=== PATIENT | female | born 1935 | race Caucasian/White ===

== ENCOUNTER 2017-10-02 15:20 | Emergency (ER) | payer MEDICARE, BC ==
[2017-10-02] MEDS ORDERED: Sodium Chloride 0.9% 10 ML Syringe FLUSH PRN (15:41)
[2017-10-02] MEDS ORDERED: Sodium Chloride 0.9% 1,000 ML IV SCH (15:45)
--- NOTE | 2017-10-02 16:03 | EDM.PDOC ---
ED HPI GENERAL MEDICAL PROBLEM - General Chief Complaint: Abdominal Pain Stated Complaint: SENT FROM RADIOLOGY Time Seen by Provider: 10/02/17 15:43 Source of Information: Reports: Patient, Old Records (xray and labs from earlier ), Provider (Latisha Hermosillo PA-C) History Limitations: Reports: No Limitations - History of Present Illness INITIAL COMMENTS - FREE TEXT/NARRATIVE: 81-year-old female presents for evaluation treatment of right lower quadrant abdominal pain. Patient reports that she is developed some discomfort yesterday. Reports that she woke with severe right lower quadrant abdominal pain this morning. Patient reports feeling bloated. Her last bowel movement was today. Denies any fevers, nausea or vomiting. Denies any melena or hematochezia. She states she is passing less gas than normal but continues to pass gas. Past abdominal surgeries include a cholecystectomy. She presented to the clinic today where she was seen by Latisha Rivera PA-C. She had labs and x-ray done. She is currently consuming contrast for CT with IV and oral contrast. X-ray showed air fluid line suspicious for small bowel obstruction. Labs included: CBC with a white blood cell count of 9.66, hemoglobin 13.5 and platelets of 251; CMP with a sodium 141, potassium 4.3, chloride 103, anion gap 14.3, creatinine 1.0 blood sugar 100; lipase was 105; CRP was undetectable less than 0.2; UA was negative for glucose, ketones, blood , nitrates and leukocytes. Onset: Today Abdomen Pain Score (Numeric/FACES): 6 - Related Data Allergies Allergy/AdvReac Type Severity Reaction Status Date / Time No Known Allergies Allergy Verified 12/25/15 12:13 Home Meds: Home Meds Diltiazem [Cardizem CD] 240 mg PO DAILY 11/26/14 [History] Levothyroxine 112 mcg PO DAILY 11/26/14 [History] Potassium Chloride [Klor-Con M20] 20 meq PO DAILY 11/26/14 [History] Pravastatin [Pravachol] 80 mg PO BEDTIME 11/26/14 [History] Acetaminophen [Tylenol] 650 mg PO Q6H PRN 10/02/17 [History] Cholecalciferol (Vitamin D3) [Vitamin D3] 5,000 unit PO DAILY 10/02/17 [History] Losartan Potassium [Cozaar] 50 mg PO DAILY 10/02/17 [History] Multivitamin [Multivitamins] 1 cap PO DAILY 10/02/17 [History] Oxybutynin Chloride 5 mg PO BEDTIME 10/02/17 [History] Venlafaxine [Effexor XR] 75 mg PO DAILY 10/02/17 [History] metFORMIN [Glucophage] 500 mg PO BID 10/02/17 [History] Past Medical History Cardiovascular History: Reports: Afib, High Cholesterol, Hypertension Psychiatric History: Reports: Anxiety, Depression Endocrine/Metabolic History: Reports: Diabetes, Type II, Hypothyroidism - Past Surgical History GI Surgical History: Reports: Colonoscopy Musculoskeletal Surgical History: Reports: Hip Replacement, Knee Replacement, Other (See Below) Social & Family History - Tobacco Use Smoking Status *Q: Former Smoker Years of Tobacco use: 40 Used Tobacco, but Quit: Yes Month Tobacco Last Used: 25 yr Second Hand Smoke Exposure: No - Caffeine Use Caffeine Use: Reports: Coffee, Soda, Tea - Alcohol Use Days Per Week of Alcohol Use: 0 Number of Drinks Per Day: 0 Total Drinks Per Week: 0 - Recreational Drug Use Recreational Drug Use: No Drug Use in Last 12 Months: No - Living Situation & Occupation Living situation: Reports: Alone Occupation: Retired ED ROS GENERAL - Review of Systems Review Of Systems: See Below Constitutional: Denies: Fever Respiratory: Denies: Shortness of Breath Cardiovascular: Denies: Chest Pain GI/Abdominal: Reports: Abdominal Pain (RLQ), Distension, Flatus. Denies: Hematochezia, Melena, Nausea, Vomiting ED EXAM, GI/ABD - Physical Exam Exam: See Below Exam Limited By: No Limitations General Appearance: Alert, WD/WN, No Apparent Distress Respiratory/Chest: No Respiratory Distress, Lungs Clear, Normal Breath Sounds Cardiovascular: Normal Peripheral Pulses, Regular Rate, Rhythm, No Murmur GI/Abdominal Exam: Soft, Distended, Tender (RLQ), Other (hyperactive bowel sounds). No: Guarding, Rigid, Rebound Neurological: Alert, Oriented, Normal Cognition Psychiatric: Normal Affect, Normal Mood Skin Exam: Warm, Dry, Normal Color Course - Vital Signs Last Recorded V/S: Last Vital Signs Temp 36.3 C 10/02/17 15:47 Pulse 68 10/02/17 17:45 Resp 16 10/02/17 17:45 BP 148/82 H 10/02/17 17:45 Pulse Ox 94 L 10/02/17 17:45 - Orders/Labs/Meds Labs: Laboratory Tests 10/02/17 10/02/17 Range/Units 15:41 15:44 PT 10.1 (8.0-13.0) SECONDS INR 0.93 POC Glucose 98 (83-110) mg/dL Meds: Medications Discontinued Medications Generic Name Dose Route Start Last Admin Trade Name Freq PRN Reason Stop Dose Admin Sodium Chloride 1,000 mls @ 100 mls/hr 10/02/17 15:45 10/02/17 16:30 Normal Saline IV 100 mls/hr ASDIRECTED JESSIKA Administration Ondansetron HCl 4 mg 10/02/17 17:34 10/02/17 17:43 Zofran IVPUSH 10/02/17 17:35 4 mg ONETIME ONE Administration Sodium Chloride 10 ml 10/02/17 15:41 10/02/17 15:40 Saline Flush FLUSH 10 ml ASDIRECTED PRN Administration Keep Vein Open - Radiology Interpretation Free Text/Narrative:: CT of the abdomen and pelvis with IV and oral contrast impression per Dr. Xie : 1. Slightly prominent size of small bowel with diffuse contrast seen throughout small bowel. This finding is felt to be incidental. 2. Other incidental findings as noted. Nothing acute is seen. Findings are similar to prior CT exam. - Re-Assessments/Exams Free Text/Narrative Re-Assessment/Exam: 10/02/17 17:[address] results with the patient. Likely constipation causing her discomfort. No bowel obstruction was seen on CT. She will likely have a large bowel movement from the contrast. I'll prescribe her bottle magnesium citrate to drink if she does not have a large bowel movement from the contrast. I also encouraged her to use MiraLAX or fiber supplementation daily to prevent constipation. Will discharge home at this time. Discharge instructions as documented. Departure - Departure Time of Disposition: 17:34 Disposition: Home, Self-Care 01 Condition: Fair Clinical Impression: Constipation - Discharge Information Instructions: Constipation, Adult, [id number] Referrals: Balbina García SIGNALS INTELLIGENCE ANALYSIS MANAGER [Primary Care Provider] - Forms: ED Department Discharge Additional Instructions: You will likely have a large bowel movement from the contrast today. If you do not have at least one large bowel movement tonight, tomorrow morning drink 1/2 of the bottle of mag citrate. If this does not produce a large bowel movement, drink the second half. make sure you are drinking plenty of fluids. Recommend [id number] MiraLAX daily or every other day for normal bowel maintenance. You should have 1-3 bowel movements every day to every 3 days. Follow up with your primary care provider if your symptoms are not much better within 1 week. Please return to ER if your symptoms change or worsen.
[2017-10-02] MEDS ORDERED: Ondansetron 4 MG/2 ML SDV IVPUSH ONE (17:34)
[2017-10-02 17:47] VITALS: BP 148/82
== END 2017-10-02 17:55 | disposition home or self-care (01) ==
LOC: SUPCPDRO 15:20 → JD.ED 15:20
DX: K59.00 Constipation, unspecified (principal); I10 Essential (primary) hypertension; E11.9 Type 2 diabetes mellitus without complications; Z79.899 Other long term (current) drug therapy; Z79.84 Long term (current) use of oral hypoglycemic drugs; Z87.891 Personal history of nicotine dependence; R10.9 Unspecified abdominal pain; R93.5 Abnormal findings on diagnostic imaging of other abdominal regions, including retroperitoneum
CPT/HCPCS: 36415; 74020; 74177; 80053; 81001; 82962; 83690; 85025; 85610; 86140; 96361; 96374; 99284; J2405; J7040; J7050; Q9963; Q9967

== ENCOUNTER 2018-05-05 17:53 | Emergency (ER) | payer MEDICARE, BC ==
[2018-05-05 18:14] VITALS: BP 125/66
[2018-05-05] MEDS ORDERED: Acetaminophen/HYDROcodone 325-5 MG Tab PO ONE (18:46)
--- NOTE | 2018-05-05 18:51 | EDM.PDOC ---
ED HPI GENERAL MEDICAL PROBLEM - General Chief Complaint: Back Pain or Injury Stated Complaint: LOWER BACK PAIN Time Seen by Provider: 05/05/18 18:38 Source of Information: Reports: Patient History Limitations: Reports: No Limitations - History of Present Illness INITIAL COMMENTS - FREE TEXT/NARRATIVE: Patient is a 82-year-old female who presents to the ED complaining of mid right- sided back discomfort. Patient states pain is pinpoint worse with palpation and movement. States the discomfort described as a sharp, spasming sensation relieved with sitting still. States yesterday she was out in the garden pulling radishes. Due to bad knees she is unable to kneel and thus was bending over excessively. Upon standing had some discomfort to the right side of her back. Throughout the course of the evening this has worsened. She's taken Tylenol with no relief. Pain with onset is rated a 10 out of 10. On initial examination she has no discomfort. She has been experiencing intermittent spasming sensations during examination. She has not taken any other medications. She believes she has tramadol at home from previous breast surgery. She denies any fever, chills, abdominal pain, dysuria, hematuria, recent fall/trauma, numbness/ tingling to lower extremities, saddle anesthesia, incontinence, or any additional complaints. She does use a cane to ambulate. Treatments INCREMENT MANAGER: Reports: Acetaminophen Back Pain Score (Numeric/FACES): 10 - Related Data Allergies Allergy/AdvReac Type Severity Reaction Status Date / Time No Known Allergies Allergy Verified 05/05/18 18:14 Home Meds: Home Meds Diltiazem [Cardizem CD] 240 mg PO DAILY 11/26/14 [History] Levothyroxine 112 mcg PO DAILY 11/26/14 [History] Potassium Chloride [Klor-Con M20] 20 meq PO DAILY 11/26/14 [History] Pravastatin [Pravachol] 80 mg PO BEDTIME 11/26/14 [History] Acetaminophen [Tylenol] 650 mg PO Q6H PRN 10/02/17 [History] Cholecalciferol (Vitamin D3) [Vitamin D3] 5,000 unit PO DAILY 10/02/17 [History] Losartan Potassium [Cozaar] 50 mg PO DAILY 10/02/17 [History] Multivitamin [Multivitamins] 1 cap PO DAILY 10/02/17 [History] Oxybutynin Chloride 5 mg PO BEDTIME 10/02/17 [History] Venlafaxine [Effexor XR] 75 mg PO DAILY 10/02/17 [History] metFORMIN [Glucophage] 500 mg PO BID 10/02/17 [History] Calcium Carbonate [Calcium] 600 mg PO DAILY 05/05/18 [History] Teriparatide [Forteo] 20 mcg SQ DAILY 05/05/18 [History] Past Medical History Cardiovascular History: Reports: Afib, High Cholesterol, Hypertension Psychiatric History: Reports: Anxiety, Depression Endocrine/Metabolic History: Reports: Diabetes, Type II, Hypothyroidism Oncologic (Cancer) History: Reports: Breast - Past Surgical History GI Surgical History: Reports: Colonoscopy Female Surgical History: Reports: Other (See Below) Other Female Surgeries/Procedures: lumpectomy Musculoskeletal Surgical History: Reports: Hip Replacement, Knee Replacement, Other (See Below) Social & Family History - Tobacco Use Smoking Status *Q: Former Smoker Used Tobacco, but Quit: Yes Month/Year Tobacco Last Used: 30 years ago - Caffeine Use Caffeine Use: Reports: Coffee, Soda - Recreational Drug Use Recreational Drug Use: No - Living Situation & Occupation Living situation: Reports: Alone Occupation: Retired ED ROS GENERAL - Review of Systems Review Of Systems: ROS reveals no pertinent complaints other than HPI. ED EXAM,LOWER BACK PAIN/INJURY - Physical Exam Exam: See Below Exam Limited By: No Limitations General Appearance: Alert, WD/WN, Mild Distress Eye Exam: Bilateral Eye: Normal Inspection Ears: Hearing Grossly Normal Nose: Normal Inspection Throat/Mouth: Normal Voice, No Airway Compromise Neck: Normal Inspection, Supple Respiratory/Chest: No Respiratory Distress, Lungs Clear, Normal Breath Sounds, No Accessory Muscle Use, Chest Non-Tender Cardiovascular: Normal Peripheral Pulses, Regular Rate, Rhythm GI/Abdominal: Normal Bowel Sounds, Soft, Non-Tender, No Organomegaly, No Distention Back Exam: Normal Inspection, Decreased Range of Motion, Muscle Spasm (Mid back right side pin point tenderness with palpation. No swelling,rash, bony abnormalities, and or bruising noted. ). No: Paraspinal Tenderness, Vertebral Tenderness Extremities: Normal Inspection Neurological: Alert, Normal Mood/Affect, Normal Dorsiflexion, CN II-XII Intact, No Motor/Sensory Deficits, Oriented x 3 Psychiatric: Normal Affect, Normal Mood Skin Exam: Warm, Dry, Intact, Normal Color Course - Vital Signs Last Recorded V/S: Last Vital Signs Temp 97.7 F 05/05/18 18:08 Pulse 80 05/05/18 18:08 Resp 18 05/05/18 18:08 BP 125/66 05/05/18 18:08 Pulse Ox 98 05/05/18 18:08 - Orders/Labs/Meds Meds: Medications Discontinued Medications Generic Name Dose Route Start Last Admin Trade Name Ricardo PRN Reason Stop Dose Admin Hydrocodone Bitart/Acetaminophen 1 tab 05/05/18 18:46 05/05/18 19:00 [place] 325-5 Mg PO 05/05/18 18:47 1 tab ONETIME ONE Administration - Re-Assessments/Exams Free Text/Narrative Re-Assessment/Exam: Order [place] one tab by mouth. Per nursing staff patient is requesting to go home prior to affect of medication. Daughter is present and will be staying with her. No prescriptions warranted. She has tramadol at home. Discharge instructions as documented. Departure - Departure Time of Disposition: 19:11 Disposition: Home, Self-Care 01 Condition: Good Clinical Impression: Strain of back Qualifiers: Encounter type: initial encounter Qualified Code(s): S39.012A - Strain of muscle, fascia and tendon of lower back, initial encounter - Discharge Information Instructions: Muscle Strain, [id number], Low Back Strain Referrals: Balbina García CLAIM ADMINISTRATOR [Primary Care Provider] - Forms: ED Department Discharge Additional Instructions: No driving this evening since receiving a sedative medication while in the ED. Take the tramadol as prescribed for pain. May utilize Aleve one tab twice daily as well. Take Tylenol 650 mg with the tramadol for added pain relief. Apply warm compresses to the affected area as needed throughout the day with gentle massage and ice to follow. Refrain from any activities that cause worsening pain. Followup with PCP asneeded. Return to the E.D. if you develop any new or worsening symptoms. Be aware you are at increased risk of falling with taking the tramadol with ambulating.
== END 2018-05-05 19:21 | disposition home or self-care (01) ==
LOC: JD.ED 17:53
DX: S39.012A Strain of muscle, fascia and tendon of lower back, initial encounter (principal); I48.91 Unspecified atrial fibrillation; E78.00 Pure hypercholesterolemia, unspecified; I10 Essential (primary) hypertension; F41.9 Anxiety disorder, unspecified; F32.9 Major depressive disorder, single episode, unspecified; E11.9 Type 2 diabetes mellitus without complications; E03.9 Hypothyroidism, unspecified; Z79.899 Other long term (current) drug therapy; Z87.891 Personal history of nicotine dependence; Z79.84 Long term (current) use of oral hypoglycemic drugs; X50.9XXA Other and unspecified overexertion or strenuous movements or postures, initial encounter
CPT/HCPCS: 99283; A9270

== ENCOUNTER 2019-09-21 06:00 | Inpatient (IN) | payer MEDICARE, BC ==
[~2019-09-21 06:00] MED LIST: Lactated Ringers 1,000 ML IV SCH; Lidocaine 1%/Sod Bicarbonate in NS 8.4% 1 ML Syringe IDERM PRN; Sodium Chloride 0.9% 10 ML Syringe FLUSH PRN
[2019-09-21] MEDS ORDERED: Sennosides 8.6 MG Tab PO PRN (06:14)
[2019-09-21] MEDS ORDERED: Morphine 2 MG/ML Syringe IVPUSH PRN (06:14)
[2019-09-21] MEDS ORDERED: Magnesium Hydroxide 400 MG/5 ML Susp 30 ML Cup PO PRN (06:14)
[2019-09-21] MEDS ORDERED: Naloxone 0.4 MG/ML SDV IVPUSH PRN (06:14)
[2019-09-21] MEDS ORDERED: Ondansetron 4 MG/2 ML SDV IVPUSH PRN ×2 (06:14→07:43)
[2019-09-21] MEDS ORDERED: Lidocaine 1% 4 ML ONE (06:14)
[2019-09-21] MEDS ORDERED: Bisacodyl 5 MG Tab PO PRN (06:14)
[2019-09-21] MEDS ORDERED: fentaNYL 100 MCG/2 ML SDV ONE (06:15)
[2019-09-21] MEDS ORDERED: Propofol 200 MG/20 ML SDV ONE (06:15)
[2019-09-21] MEDS ORDERED: Midazolam 1 MG/ML 2 ML SDV ONE (06:15)
[2019-09-21] MEDS ORDERED: ceFAZolin 1 GM Vial ONE (06:17)
--- NOTE | 2019-09-21 06:33 | PCM.PREANE ---
Preanesthetic Assessment - Procedure Proposed Procedure: right total hip - Anesthesia/Transfusion/Family Hx Anesthesia History: Prior Anesthesia Without Reaction Family History of Anesthesia Reaction: No Transfusion History: No Prior Transfusion(s) - Review of Systems General: No Symptoms Pulmonary: No Symptoms, Cough (for a while- maybe meds) Cardiovascular: No Symptoms Gastrointestinal: Abdominal Pain (at times- has been going on) Neurological: No Symptoms, Difficulty Walking (walker) Other: Reports: Diabetes, Thyroid Problems, Depression - Physical Assessment NPO Status Date: 09/20/19 NPO Status Time: 19:00 (sip with pills this am) Vital Signs: Last Vital Signs Temp 98.7 F 09/21/19 06:15 Pulse 92 09/21/19 06:15 Resp 16 09/21/19 06:15 BP 150/80 H 09/21/19 06:15 Pulse Ox 93 L 09/21/19 06:15 Height: 5 ft 1 in Weight: 61.235 kg ASA Class: 3 Mental Status: Alert & Oriented x3 Airway Class: Mallampati = 1 Dentition: Reports: Dentures (top) Thyro-Mental Finger Breadths: 3 Mouth Opening Finger Breadths: 3 ROM/Head Extension: Full Lungs: Clear to Auscultation, Normal Respiratory Effort Cardiovascular: Regular Rate, Regular Rhythm - Lab Values: Laboratory Last Values MRSA (PCR) Negative 09/11/19 11:02 - Allergies Allergies/Adverse Reactions: Allergies Allergy/AdvReac Type Severity Reaction Status Date / Time No Known Allergies Allergy Verified 09/18/19 10:12 - Blood Blood Available: Yes - Acknowledgements Anesthesia Type Planned: Spinal Pt an Appropriate Candidate for the Planned Anesthesia: Yes Alternatives and Risks of Anesthesia Discussed w Pt/Guardian: Yes Pt/Guardian Understands and Agrees with Anesthesia Plan: Yes PreAnesthesia Questionnaire HEENT History: Reports: Hard of Hearing Other HEENT History: diabetic retinopathy, hearing loss, tinnitis, wears glasses , has upper denture Cardiovascular History: Reports: High Cholesterol, Hypertension Respiratory History: Reports: Bronchitis, Recurrent, Other (See Below) Other Respiratory History: wheezing, hoarsness, URI- past smoker Gastrointestinal History: Reports: None, GERD, Other (See Below) Other Gastrointestinal History: change in bowel habits, abdominal discomfort Genitourinary History: Reports: Urinary Incontinence HUB BANDER History: Reports: Other Musculoskeletal History: Carpal Tunnel Syndrome, hip pain, nee pain, low bck pain, Other Neuro History: Dizziness, poor balance, history of falls recently (fall 2019) Psychiatric History: Reports: Anxiety, Depression, Other (See Below) Other Psychiatric History: insomnia Endocrine/Metabolic History: Reports: Diabetes, Type II, Hypothyroidism Hematologic History: Reports: None Immunologic History: Reports: None Oncologic (Cancer) History: Reports: Breast Dermatologic History: Reports: None, Other (See Below) Other Dermatologic History: soft tissue mass - Infectious Disease History Infectious Disease History: Reports: None - Past Surgical History Head Surgeries/Procedures: Reports: None HEENT Surgical History: Reports: Cataract Surgery, Other (See Below) Other HEENT Surgeries/Procedures: laryngotomy Cardiovascular Surgical History: Reports: None Respiratory Surgical History: Reports: None GI Surgical History: Reports: Cholecystectomy, Colonoscopy Female Surgical History: Reports: Other (See Below) Other Female Surgeries/Procedures: lumpectomy Endocrine Surgical History: Reports: Thyroidectomy Musculoskeletal Surgical History: Reports: Hip Replacement, Knee Replacement, Other (See Below) Other Musculoskeletal Surgeries/Procedures:: fractured femur and surgery, right bunion surgery with screw placementj, left shoulder surger Oncologic Surgical History: Reports: None - SUBSTANCE USE Smoking Status *Q: Former Smoker Tobacco Use Within Last Twelve Months: No Second Hand Smoke Exposure: No Days Per Week of Alcohol Use: 0 Recreational Drug Use History: No - HOME MEDS Home Medications: Home Meds Diltiazem [Cardizem CD] 240 mg PO DAILY 11/26/14 [History] Levothyroxine 112 mcg PO DAILY 11/26/14 [History] Pravastatin [Pravachol] 80 mg PO BEDTIME 11/26/14 [History] Acetaminophen [Tylenol] 650 mg PO Q6H PRN 10/02/17 [History] Cholecalciferol (Vitamin D3) [Vitamin D3] 5,000 unit PO DAILY 10/02/17 [History] Losartan Potassium [Cozaar] 50 mg PO DAILY 10/02/17 [History] Oxybutynin Chloride 5 mg PO BEDTIME 10/02/17 [History] metFORMIN [Glucophage] 500 mg PO BID 10/02/17 [History] Calcium Carbonate [Calcium] 600 mg PO DAILY 05/05/18 [History] Omeprazole 20 mg PO DAILY 06/03/19 [History] Timolol Maleate/Latanoprost/Pf [Timolol 0.5%-Latanopros 0.005%] 1 drop EYEBOTH DAILY 06/03/19 [History] Venlafaxine [Effexor] 75 mg PO DAILY 06/03/19 [History] Venlafaxine [Effexor XR 24 Hr] 37.5 mg PO DAILY 06/26/19 [History] - CURRENT (IN HOUSE) MEDS Current Meds: Current Medications Hydrocodone Bitart/Acetaminophen ([place] 325-5 Mg) 1 - 2 tab PO Q4H PRN PRN Reason: Pain Bisacodyl (Dulcolax) 5 mg PO DAILY PRN PRN Reason: Constipation Morphine Sulfate 8 mg/Epinephrine HCl 0.3 mg/Cefuroxime Sodium 750 mg/Ketorolac Tromethamine 30 mg/Sodium Chloride 27.9 ml 0 mg .XX ONETIME ONE Stop: 09/21/19 06:14 Docusate Sodium (Colace) 100 mg PO BID JESSIKA Famotidine (Pepcid) 20 mg PO Q12H JESSIKA Lactated Ringer's (Ringers, Lactated) 1,000 mls @ 125 mls/hr IV ASDIRECTED JESSIKA Cefazolin Sodium/Dextrose 2 gm (/ Premix) 50 mls @ 100 mls/hr IV Q8H JESSIKA Stop: 09/21/19 22:44 Ketorolac Tromethamine (Toradol) 15 mg IVPUSH Q6H PRN PRN Reason: Pain Lidocaine/Sodium Bicarbonate (Buffered Lidocaine 1% In Ns 8.4%) 0.25 ml IDERM ONETIME PRN PRN Reason: Prior to IV Start Magnesium Hydroxide (Milk Of Magnesia) 30 ml PO BID PRN PRN Reason: Constipation Morphine Sulfate (Morphine) 2 mg IVPUSH Q2H PRN PRN Reason: Breakthrough Pain Naloxone HCl (Narcan) 0.1 mg IVPUSH Q5M PRN PRN Reason: Oversedation Ondansetron HCl (Zofran) 4 mg IVPUSH Q6H PRN PRN Reason: Nausea/Vomiting Rivaroxaban (Xarelto) 10 mg PO DAILY JESSIKA Senna (Senna) 8.6 mg PO BID PRN PRN Reason: Constipation Sodium Chloride (Saline Flush) 10 ml FLUSH ASDIRECTED PRN PRN Reason: Keep Vein Open Discontinued Medications Bupivacaine HCl (Sensorcaine-Mpf 0.25%) Confirm Administered Dose 30 ml .ROUTE .STK-MED ONE Stop: 09/21/19 06:18 Cefazolin Sodium (Ancef) Confirm Administered Dose 2 gm .ROUTE .STK-MED ONE Stop: 09/21/19 06:18 Cefazolin Sodium (Ancef) Confirm Administered Dose 2 gm .ROUTE .STK-MED ONE Stop: 09/21/19 06:18 Fentanyl (Sublimaze) Confirm Administered Dose 100 mcg .ROUTE .STK-MED ONE Stop: 09/21/19 06:16 Lidocaine HCl (Xylocaine-Mpf 1%) Confirm Administered Dose 4 mls @ as directed .ROUTE .STK-MED ONE Stop: 09/21/19 06:15 Iodine (Iodine 2% Mild Tincture) Confirm Administered Dose 30 ml .ROUTE .STK- MED ONE Stop: 09/21/19 06:18 Midazolam HCl (Versed 1 Mg/Ml) Confirm Administered Dose 2 mg .ROUTE .STK-MED ONE Stop: 09/21/19 06:16 Propofol (Diprivan 20 Ml) Confirm Administered Dose 400 mg .ROUTE .STK-MED ONE Stop: 09/21/19 06:16 Tranexamic Acid (Cyklokapron) Confirm Administered Dose 1,000 mg .ROUTE .STK- MED ONE Stop: 09/21/19 06:18 Vancomycin HCl (Vancomycin) Confirm Administered Dose 1 gm .ROUTE .STK-MED ONE Stop: 09/21/19 06:18
[2019-09-21] MEDS ORDERED: Phenylephrine/Normal Saline 100 MCG/ML 10 ML Syringe ONE (07:15)
--- NOTE | 2019-09-21 07:31 | PCM.CONS ---
<Meng Pretty - Last Filed: 09/22/19 15:45> H&P History of Present Illness - General Date of Service: 09/22/19 Admit Problem/Dx: Admission Diagnosis/Problem Admission Diagnosis/Problem Osteoarthritis of hip Source of Information: Patient, Old Records, Provider, RN, RN Notes Reviewed History Limitations: Reports: No Limitations - History of Present Illness Initial Comments - Free Text/Narative: Kavitha Jones is a 83 yo female patient of Dr. Prieto who is post-operative day 1 of right WALTER. Hospital medicine was consulted for post-operative medical care of the following listed medical conditions. At this time she is resting comfortably in bed. Pain is controlled. She denies any chest pain, shortness of breath, palpitations, nausea, or vomiting. She carries a history of: Depression , Type II DM, GERD, HLD, Hypothyroidism, Incontinence, Insomnia, Low back pain, Osteoporosis, Hx/o PE, Diabetic retinopathy, Tinnitus, HTN, History of recurrent falls, Anxiety, Hx/o Breast cancer, Recurrent bronchitis. She is a former smoker. She is a full code. Her primary care provider is Balbina García NP. Right Hip Pain Score (Numeric/FACES): 4 - Related Data Allergies/Adverse Reactions: Allergies Allergy/AdvReac Type Severity Reaction Status Date / Time No Known Allergies Allergy Verified 09/21/19 11:21 Home Medications: Home Meds Diltiazem [Cardizem CD] 240 mg PO DAILY 11/26/14 [History] Levothyroxine 112 mcg PO DAILY 11/26/14 [History] Cholecalciferol (Vitamin D3) [Vitamin D3] 5,000 unit PO DAILY 10/02/17 [History] Losartan Potassium [Cozaar] 50 mg PO DAILY 10/02/17 [History] Oxybutynin Chloride 5 mg PO BEDTIME 10/02/17 [History] metFORMIN [Glucophage] 500 mg PO BID 10/02/17 [History] Calcium Carbonate [Calcium] 600 mg PO DAILY 05/05/18 [History] Omeprazole 20 mg PO DAILY 06/03/19 [History] Timolol Maleate/Latanoprost/Pf [Timolol 0.5%-Latanopros 0.005%] 1 drop EYEBOTH DAILY 06/03/19 [History] Venlafaxine [Effexor] 75 mg PO DAILY 06/03/19 [History] Venlafaxine [Effexor XR] 37.5 mg PO DAILY 06/26/19 [History] Apixaban [Eliquis] 2.5 mg PO BID #70 tablet 09/22/19 [Rx] Bisacodyl [Dulcolax] 5 mg PO DAILY PRN tablet 09/22/19 [Rx] Docusate Sodium [Colace] 100 mg PO BID cap 09/22/19 [Rx] Sennosides [Senna] 8.6 mg PO BID PRN tablet 09/22/19 [Rx] oxyCODONE 5 - 10 mg PO Q6H PRN #40 tab 09/22/19 [Rx] Past Medical History HEENT History: Reports: Hard of Hearing Other HEENT History: diabetic retinopathy, hearing loss, tinnitis, wears glasses , has upper denture Cardiovascular History: Reports: High Cholesterol, Hypertension Respiratory History: Reports: Bronchitis, Recurrent, Other (See Below) Other Respiratory History: wheezing, hoarsness, URI- past smoker Gastrointestinal History: Reports: None, GERD, Other (See Below) Other Gastrointestinal History: change in bowel habits, abdominal discomfort Genitourinary History: Reports: 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: Other Musculoskeletal History: Carpal Tunnel Syndrome, hip pain, nee pain, low bck pain, Other Neuro History: Dizziness, poor balance, history of falls recently (fall 2018) Psychiatric History: Reports: Anxiety, Depression, Other (See Below) Other Psychiatric History: insomnia Endocrine/Metabolic History: Reports: Diabetes, Type II, Hypothyroidism Hematologic History: Reports: None Immunologic History: Reports: None Oncologic (Cancer) History: Reports: Breast Dermatologic History: Reports: None, Other (See Below) Other Dermatologic History: soft tissue mass - Infectious Disease History Infectious Disease History: Reports: None - Past Surgical History Head Surgeries/Procedures: Reports: None HEENT Surgical History: Reports: Cataract Surgery, Other (See Below) Other HEENT Surgeries/Procedures: laryngotomy Cardiovascular Surgical History: Reports: None Respiratory Surgical History: Reports: None GI Surgical History: Reports: Cholecystectomy, Colonoscopy Female Surgical History: Reports: Other (See Below) Other Female Surgeries/Procedures: lumpectomy Endocrine Surgical History: Reports: Thyroidectomy Musculoskeletal Surgical History: Reports: Hip Replacement, Knee Replacement, Other (See Below) Other Musculoskeletal Surgeries/Procedures:: fractured femur and surgery, right bunion surgery with screw placementj, left shoulder surger Oncologic Surgical History: Reports: None Social & Family History - Tobacco Use Smoking Status *Q: Former Smoker Years of Tobacco use: 30 Used Tobacco, but Quit: Yes Month/Year Tobacco Last Used: 1999 Second Hand Smoke Exposure: No - Caffeine Use Caffeine Use: Reports: Coffee, Soda - Alcohol Use Days Per Week of Alcohol Use: 0 - Recreational Drug Use Recreational Drug Use: No - Living Situation & Occupation Living situation: Reports: Alone Occupation: Retired H&P Review of Systems - Review of Systems: Review Of Systems: See Below General: Reports: No Symptoms. Denies: Fever, Chills HEENT: Reports: No Symptoms. Denies: Headaches, Sore Throat Pulmonary: Reports: No Symptoms. Denies: Shortness of Breath, Wheezing, Pleuritic Chest Pain, Cough, Sputum Cardiovascular: Reports: No Symptoms. Denies: Chest Pain, Palpitations, Dyspnea on Exertion Gastrointestinal: Reports: No Symptoms. Denies: Abdominal Pain, Constipation, Diarrhea, Nausea, Vomiting Genitourinary: Reports: No Symptoms. Denies: Pain Musculoskeletal: Reports: Leg Pain (right leg ) Skin: Reports: No Symptoms. Denies: Cyanosis Psychiatric: Reports: No Symptoms. Denies: Confusion Neurological: Reports: Difficulty Walking, Gait Disturbance Hematologic/Lymphatic: Reports: No Symptoms Immunologic: Reports: No Symptoms Exam - Exam Exam: See Below - Vital Signs Vital Signs: Last Vital Signs Temp 98.7 F 09/21/19 06:15 Pulse 92 09/21/19 06:15 Resp 16 09/21/19 06:15 BP 150/80 H 09/21/19 06:15 Pulse Ox 93 L 09/21/19 06:15 Weight: 61.235 kg - Exam Quality Assessment: DVT Prophylaxis General: Alert, Oriented, Cooperative. No: Mild Distress HEENT: Conjunctiva Clear, EACs Clear, EOMI, Hearing Intact, Mucosa Moist & [place] , Nares Patent, Posterior Pharynx Clear, PERRLA Neck: Supple, Trachea Midline Lungs: Clear to Auscultation, Normal Respiratory Effort Cardiovascular: Regular Rate, Regular Rhythm GI/Abdominal Exam: Normal Bowel Sounds, Soft, Non-Tender, No Distention, No Abnormal Bruit (Female) Exam: Deferred Rectal (Female) Exam: Deferred Back Exam: Normal Inspection, Full Range of Motion Extremities: No Pedal Edema, Normal Capillary Refill, Leg Pain, Limited Range of Motion, Other (Bandage in place on right leg. Bandage is dry and intact. Cooling pack in place. ) Peripheral Pulses: 2+: Radial (L), Radial (R), Dorsalis Pedis (L), Dorsalis Pedis (R) Skin: Warm, Dry, Intact Neurological: Cranial Nerves Intact (Grossly ) Neuro Extensive - Mental Status: Alert, Oriented x3, Normal Mood/Affect - Patient Data Lab Results Last 24 hrs: Laboratory Results - last 24 hr 09/21/19 09/21/19 Range/Units 06:30 06:34 POC Glucose 108 (83-110) mg/dL Blood Type A POSITIVE Gel Antibody Screen Negative Result Diagrams: 09/22/19 05:15 09/22/19 05:15 Consult PN Assessment/Plan POD#: 1 Procedures: Procedures AIRWAY INHALATION TREATMENT (11/29/14) APPLICATION LONG LEG SPLINT (12/15/14) ASSAY OF CREATININE (01/07/18) ASSAY OF FERRITIN (04/26/17) ASSAY OF IRON (04/26/17) ASSAY OF LIPASE (10/02/17) ASSAY OF PREALBUMIN (08/26/19) ASSAY OF TRANSFERRIN (04/26/17) ASSAY OF TROPONIN QUANT (06/03/19) ASSAY THYROID STIM HORMONE (04/24/19) BLOOD CULTURE FOR BACTERIA (03/03/15) BX BREAST 1ST LESION US IMAG (02/06/18) C-REACTIVE PROTEIN (10/07/17) CHEST X-RAY 1 VIEW FRONTAL (11/29/14) COMP SCREEN MAMMOGRAM ADD-ON (11/05/16) COMPLETE CBC AUTOMATED (08/26/19) COMPLETE CBC W/AUTO DIFF WBC (06/03/19) COMPREHEN METABOLIC PANEL (08/26/19) CT ABD & PELV 1/> REGNS (07/12/15) CT ABD & PELV W/CONTRAST (10/02/17) CT HEAD/BRAIN W/O DYE (06/26/19) CT UPPER EXTREMITY W/O DYE (10/11/14) CULTURE OTHR SPECIMN AEROBIC (03/03/15) DRAIN/INJ JOINT/BURSA W/O US (06/16/19) DTAP VACCINE < 7 YRS IM (06/26/19) DX MAMMO INCL CAD UNI (02/06/18) DXA BONE DENSITY AXIAL (12/01/18) ELECTROCARDIOGRAM TRACING (08/26/19) EMERGENCY DEPT VISIT (06/26/19) EMERGENCY DEPT VISIT (06/03/19) EMERGENCY DEPT VISIT (10/05/18) EMERGENCY DEPT VISIT (10/02/17) EMERGENCY DEPT VISIT (12/25/15) EMERGENCY DEPT VISIT (03/06/15) EVALUATE PT USE OF INHALER (11/29/14) FLUOROSCOPY <1 HR PHYS/QHP (11/29/14) GAIT TRAINING THERAPY (11/29/14) GLUCOSE BLOOD TEST (10/02/17) GLYCOSYLATED HEMOGLOBIN TEST (07/28/19) HYDRATE IV INFUSION ADD-ON (10/02/17) IIV NO PRSV INCREASED AG IM (08/26/19) IMMUNIZATION ADMIN (06/26/19) IMMUNOHISTO ANTB 1ST STAIN (02/06/18) LIPID PANEL (07/28/19) MASSAGE THERAPY (11/29/14) MEASURE BLOOD OXYGEN LEVEL (11/29/14) METABOLIC PANEL TOTAL CA (09/11/17) MR-STAPH DNA AMP PROBE (11/29/14) MRI BRAIN STEM W/O DYE (03/04/19) MRI CHEST W/O DYE (01/07/18) MRI NECK SPINE W/O DYE (03/04/19) OFFICE/OUTPATIENT VISIT EST (08/26/19) OFFICE/OUTPATIENT VISIT EST (10/07/17) OT EVALUATION (11/29/14) PROTHROMBIN TIME (08/26/19) PT EVALUATION (11/29/14) RBC SED RATE AUTOMATED (12/29/15) ROUTINE VENIPUNCTURE (08/26/19) RPR S/N/AX/GEN/TRNK 2.5CM/< (06/26/19) RPR S/N/AX/GEN/TRNK2.6-7.5CM (10/05/18) SCR MAMMO BI INCL CAD (01/14/18) SELF CARE MNGMENT TRAINING (11/29/14) THER/PROPH/DIAG INJ IV PUSH (06/03/19) THERAPEUTIC ACTIVITIES (11/29/14) THERAPEUTIC EXERCISES (11/29/14) THROMBOPLASTIN TIME PARTIAL (08/26/19) TX/PRO/DX INJ SAME DRUG 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) ULTRASOUND BREAST COMPLETE (11/08/16) ULTRASOUND BREAST LIMITED (01/23/18) UR ALBUMIN QUANTITATIVE (04/26/17) URINALYSIS AUTO W/SCOPE (03/19/18) URINE BACTERIA CULTURE (11/29/14) US EXAM CHEST (01/02/18) US EXAM OF HEAD AND NECK (03/19/18) VITAMIN B-12 (10/28/18) VITAMIN D 25 HYDROXY (01/08/18) X-RAY EXAM CHEST 1 VIEW (06/03/19) X-RAY EXAM CHEST 2 VIEWS (08/26/19) X-RAY EXAM KNEE 4 OR MORE (07/29/17) X-RAY EXAM L-S SPINE 2/3 VWS (08/14/17) X-RAY EXAM OF ABDOMEN (10/07/17) X-RAY EXAM OF ANKLE (09/19/17) X-RAY EXAM OF FOOT (09/19/17) X-RAY EXAM OF HAND (06/26/19) X-RAY EXAM OF KNEE 1 OR 2 (12/15/14) X-RAY EXAM OF LOWER LEG (12/15/14) X-RAY EXAM OF THIGH (03/06/15) (1) S/P total hip arthroplasty SNOMED Code(s): 919439894170, 688129981311 Code(s): Z96.649 - PRESENCE OF UNSPECIFIED ARTIFICIAL HIP JOINT Priority: High Qualifiers: Laterality: right Qualified Code(s): Z96.641 - Presence of right artificial hip joint (2) GERD (gastroesophageal reflux disease) SNOMED Code(s): 838141772 Code(s): K21.9 - GASTRO-ESOPHAGEAL REFLUX DISEASE WITHOUT ESOPHAGITIS Priority: Low Qualifiers: Esophagitis presence: esophagitis presence not specified Qualified Code(s) : K21.9 - Gastro-esophageal reflux disease without esophagitis (3) Incontinence SNOMED Code(s): 26451153 Code(s): R32 - UNSPECIFIED URINARY INCONTINENCE Priority: Low Qualifiers: Incontinence type: urinary Urinary Incontinence type: unspecified incontinence Qualified Code(s): R32 - Unspecified urinary incontinence (4) Insomnia SNOMED Code(s): 012835968 Code(s): G47.00 - INSOMNIA, UNSPECIFIED Priority: Low Qualifiers: Insomnia type: unspecified Qualified Code(s): G47.00 - Insomnia, unspecified (5) Low back pain SNOMED Code(s): 416231079 Code(s): M54.5 - LOW BACK PAIN Priority: Low Qualifiers: Chronicity: unspecified Back pain laterality: unspecified Sciatica presence: unspecified whether sciatica present Qualified Code(s): M54.5 - Low back pain (6) Osteoporosis SNOMED Code(s): 79972841 Code(s): M81.0 - AGE-RELATED OSTEOPOROSIS W/O CURRENT PATHOLOGICAL FRACTURE Priority: High Qualifiers: Osteoporosis type: unspecified Presence of current pathological fracture: without current pathological fracture Qualified Code(s): M81.0 - Age-related osteoporosis without current pathological fracture (7) History of pulmonary embolus (PE) SNOMED Code(s): 193226742 Code(s): Z86.711 - PERSONAL HISTORY OF PULMONARY EMBOLISM Priority: Medium (8) Diabetes mellitus SNOMED Code(s): 90210546 Code(s): E11.9 - TYPE 2 DIABETES MELLITUS WITHOUT COMPLICATIONS Priority: Medium (9) HTN, Essential hypertension SNOMED Code(s): 55707223 Code(s): I10 - ESSENTIAL (PRIMARY) HYPERTENSION Priority: Medium (10) Hyperlipidemia SNOMED Code(s): 39758870 Code(s): E78.5 - HYPERLIPIDEMIA, UNSPECIFIED Priority: Low (11) Hypothyroidism SNOMED Code(s): 47663121 Code(s): E03.9 - HYPOTHYROIDISM, UNSPECIFIED Priority: Low (12) Transaminitis SNOMED Code(s): 260962086, 244068031 Code(s): R74.0 - NONSPEC ELEV OF LEVELS OF TRANSAMNS & LACTIC ACID DEHYDRGNSE Problem List Initiated/Reviewed/Updated: Yes Plan: I/P: Acute: S/P right total hip arthroplasty - post-operative day 1 -DVT prophylaxis and pain management per primary care team -PT/OT -IS/RT -Monitor oxygen saturation -Titrate oxygen as needed -Home medications reviewed -Vital signs stable -Monitor labs -Pre-operative Hgb was 13.6; Now 11.4 -Pre-operative GFR was >60; Now 47 -Pre-operative creatinine was 0.9; Now 1.1 -Pre-operative BUN was 19; Now 20 -Pre-operative A1C was 6.4% on 07/28/19 Osteoarthritis of right hip -Pain management per primary care team Post-operative transaminitis -Pre-operative AST was 20; AM 751; Repeat 455 -Pre-operative ALT was 21; AM 485; Repeat 310 -Pre-operative Aalk phos was 101; AM 157; Repeat 174 -Primary team switching pain medications -Hold statin until cleared by PCP -GGT 404; Repeat 410 -Direct bilirubin 0.3 -INR 1.06 -Hepatitis panel pending Chronic: Depression Type II DM GERD HLD Hypothyroidism Incontinence Insomnia Low back pain Osteoporosis Hx/o PE Diabetic retinopathy Tinnitus HTN History of recurrent falls Anxiety Hx/o Breast cancer Recurrent bronchitis Plan: Telemetry CM for discharge planning GI prophylaxis Home medications as indicated Other orders as listed above Routine AM labs She is a full code. Her PCP is Balbina García NP From a hospitalist standpoint Kavitha has been doing well. She has been up ambulating and working with therapies. She has urinated and has been eating. Unfortunately we were unable to wean her off of oxygen. She will be discharged on 1L and her PCP can monitor for continued need. Her liver enzymes were elevated this AM as above. Recheck showed lower. PCP was contacted and would like to her follow-up next week for a re-check of her enzymes. Her hepatitis panel is still pending. Otherwise labs and vital signs have remained stable. She is cleared for discharge pending primary team and PT/OT agreement. Follow- up appointment has been made in our clinic with Kira Rojas PA-C by nursing. Thank you for allowing us to participate in the care of this patient!! Requesting Provider: Dr. Prieto Date Consult Requested: 09/21/19 Patient History Reviewed: Yes Admission H&P Reviewed: Yes <Nallely Bazzi - Last Filed: 09/22/19 21:21> H&P History of Present Illness - General Admit Problem/Dx: Admission Diagnosis/Problem Admission Diagnosis/Problem Osteoarthritis of hip Exam - Vital Signs Vital Signs: Last Vital Signs Temp 36.6 C 09/22/19 15:15 Pulse 86 09/22/19 15:15 Resp 16 09/22/19 12:02 BP 123/81 09/22/19 15:15 Pulse Ox 94 L 09/22/19 15:15 - Patient Data Lab Results Last 24 hrs: Laboratory Results - last 24 hr 09/21/19 09/21/19 09/22/19 Range/Units 17:17 21:32 05:15 WBC 7.58 (3.98-10.04) K/mm3 RBC 4.08 (3.98-5.22) M/mm3 Hgb 11.4 D (11.2-15.7) gm/dl Hct 36.9 (34.1-44.9) % MCV 90.4 (79.4-94.8) fl MCH 27.9 (25.6-32.2) pg MCHC 30.9 L (32.2-35.5) g/dl RDW Std Deviation 45.1 (36.4-46.3) fL Plt Count 258 (182-369) K/mm3 MPV 9.5 (9.4-12.3) fl PT (9.7-12.0) SECONDS INR Sodium (136-145) mEq/L Potassium (3.5-5.1) mEq/L Chloride (98-107) mEq/L Carbon Dioxide (21-32) mEq/L Anion Gap (5-15) BUN (7-18) mg/dL Creatinine (0.55-1.02) mg/dL Est Cr Clr Drug Dosing mL/min Estimated GFR (MDRD) (>60) mL/min BUN/Creatinine Ratio (14-18) Glucose (83-115) mg/dL POC Glucose 121 H 364 H (83-110) mg/dL Calcium (8.5-10.1) mg/dL Total Bilirubin (0.2-1.0) mg/dL Direct Bilirubin (0.0-0.2) mg/dl Indirect Bilirubin GGT (5-55) U/L AST (15-37) U/L ALT (14-59) U/L Alkaline Phosphatase (46-116) U/L Total Protein (6.4-8.2) g/dl Albumin (3.4-5.0) g/dl Globulin gm/dL Albumin/Globulin Ratio (1-2) Acetaminophen (10-30) ug/mL 09/22/19 09/22/19 09/22/19 Range/Units 05:15 05:15 06:28 WBC (3.98-10.04) K/mm3 RBC (3.98-5.22) M/mm3 Hgb (11.2-15.7) gm/dl Hct (34.1-44.9) % MCV (79.4-94.8) fl MCH (25.6-32.2) pg MCHC (32.2-35.5) g/dl RDW Std Deviation (36.4-46.3) fL Plt Count (182-369) K/mm3 MPV (9.4-12.3) fl PT (9.7-12.0) SECONDS INR Sodium 137 (136-145) mEq/L Potassium 3.9 (3.5-5.1) mEq/L Chloride 101 (98-107) mEq/L Carbon Dioxide 28 (21-32) mEq/L Anion Gap 11.9 (5-15) BUN 20 H (7-18) mg/dL Creatinine 1.1 H (0.55-1.02) mg/dL Est Cr Clr Drug Dosing 29.24 mL/min Estimated GFR (MDRD) 47 (>60) mL/min BUN/Creatinine Ratio 18.2 H (14-18) Glucose 119 H (83-115) mg/dL POC Glucose 114 H (83-110) mg/dL Calcium 8.7 (8.5-10.1) mg/dL Total Bilirubin 0.5 (0.2-1.0) mg/dL Direct Bilirubin (0.0-0.2) mg/dl Indirect Bilirubin GGT 404 H (5-55) U/L AST 751 H (15-37) U/L ALT 485 H (14-59) U/L Alkaline Phosphatase 157 H (46-116) U/L Total Protein 6.1 L (6.4-8.2) g/dl Albumin 2.9 L (3.4-5.0) g/dl Globulin 3.2 gm/dL Albumin/Globulin Ratio 0.9 L (1-2) Acetaminophen 2 L (10-30) ug/mL 09/22/19 09/22/19 09/22/19 Range/Units 11:42 14:40 14:40 WBC (3.98-10.04) K/mm3 RBC (3.98-5.22) M/mm3 Hgb (11.2-15.7) gm/dl Hct (34.1-44.9) % MCV (79.4-94.8) fl MCH (25.6-32.2) pg MCHC (32.2-35.5) g/dl RDW Std Deviation (36.4-46.3) fL Plt Count (182-369) K/mm3 MPV (9.4-12.3) fl PT 11.5 (9.7-12.0) SECONDS INR 1.06 Sodium (136-145) mEq/L Potassium (3.5-5.1) mEq/L Chloride (98-107) mEq/L Carbon Dioxide (21-32) mEq/L Anion Gap (5-15) BUN (7-18) mg/dL Creatinine (0.55-1.02) mg/dL Est Cr Clr Drug Dosing mL/min Estimated GFR (MDRD) (>60) mL/min BUN/Creatinine Ratio (14-18) Glucose (83-115) mg/dL POC Glucose 94 (83-110) mg/dL Calcium (8.5-10.1) mg/dL Total Bilirubin 0.7 (0.2-1.0) mg/dL Direct Bilirubin 0.30 H (0.0-0.2) mg/dl Indirect Bilirubin 0.40 GGT 410 H (5-55) U/L AST 455 H (15-37) U/L ALT 310 H (14-59) U/L Alkaline Phosphatase 174 H (46-116) U/L Total Protein 6.7 (6.4-8.2) g/dl Albumin 3.1 L (3.4-5.0) g/dl Globulin 3.6 gm/dL Albumin/Globulin Ratio 0.9 L (1-2) Acetaminophen (10-30) ug/mL 09/22/19 Range/Units 15:52 WBC (3.98-10.04) K/mm3 RBC (3.98-5.22) M/mm3 Hgb (11.2-15.7) gm/dl Hct (34.1-44.9) % MCV (79.4-94.8) fl MCH (25.6-32.2) pg MCHC (32.2-35.5) g/dl RDW Std Deviation (36.4-46.3) fL Plt Count (182-369) K/mm3 MPV (9.4-12.3) fl PT (9.7-12.0) SECONDS INR Sodium (136-145) mEq/L Potassium (3.5-5.1) mEq/L Chloride (98-107) mEq/L Carbon Dioxide (21-32) mEq/L Anion Gap (5-15) BUN (7-18) mg/dL Creatinine (0.55-1.02) mg/dL Est Cr Clr Drug Dosing mL/min Estimated GFR (MDRD) (>60) mL/min BUN/Creatinine Ratio (14-18) Glucose (83-115) mg/dL POC Glucose 117 H (83-110) mg/dL Calcium (8.5-10.1) mg/dL Total Bilirubin (0.2-1.0) mg/dL Direct Bilirubin (0.0-0.2) mg/dl Indirect Bilirubin GGT (5-55) U/L AST (15-37) U/L ALT (14-59) U/L Alkaline Phosphatase (46-116) U/L Total Protein (6.4-8.2) g/dl Albumin (3.4-5.0) g/dl Globulin gm/dL Albumin/Globulin Ratio (1-2) Acetaminophen (10-30) ug/mL Result Diagrams: 09/22/19 05:15 09/22/19 05:15 Consult PN Assessment/Plan Procedures: Procedures AIRWAY INHALATION TREATMENT (11/29/14) APPLICATION LONG LEG SPLINT (12/15/14) ASSAY OF CREATININE (01/07/18) ASSAY OF FERRITIN (04/26/17) ASSAY OF IRON (04/26/17) ASSAY OF LIPASE (10/02/17) ASSAY OF PREALBUMIN (08/26/19) ASSAY OF TRANSFERRIN (04/26/17) ASSAY OF TROPONIN QUANT (06/03/19) ASSAY THYROID STIM HORMONE (04/24/19) BLOOD CULTURE FOR BACTERIA (03/03/15) BX BREAST 1ST LESION US IMAG (02/06/18) C-REACTIVE PROTEIN (10/07/17) CHEST X-RAY 1 VIEW FRONTAL (11/29/14) COMP SCREEN MAMMOGRAM ADD-ON (11/05/16) COMPLETE CBC AUTOMATED (08/26/19) COMPLETE CBC W/AUTO DIFF WBC (06/03/19) COMPREHEN METABOLIC PANEL (08/26/19) CT ABD & PELV 1/> REGNS (07/12/15) CT ABD & PELV W/CONTRAST (10/02/17) CT HEAD/BRAIN W/O DYE (06/26/19) CT UPPER EXTREMITY W/O DYE (10/11/14) CULTURE OTHR SPECIMN AEROBIC (03/03/15) DRAIN/INJ JOINT/BURSA W/O US (06/16/19) DTAP VACCINE < 7 YRS IM (06/26/19) DX MAMMO INCL CAD UNI (02/06/18) DXA BONE DENSITY AXIAL (12/01/18) ELECTROCARDIOGRAM TRACING (08/26/19) EMERGENCY DEPT VISIT (06/26/19) EMERGENCY DEPT VISIT (06/03/19) EMERGENCY DEPT VISIT (10/05/18) EMERGENCY DEPT VISIT (10/02/17) EMERGENCY DEPT VISIT (12/25/15) EMERGENCY DEPT VISIT (03/06/15) EVALUATE PT USE OF INHALER (11/29/14) FLUOROSCOPY <1 HR PHYS/QHP (11/29/14) GAIT TRAINING THERAPY (11/29/14) GLUCOSE BLOOD TEST (10/02/17) GLYCOSYLATED HEMOGLOBIN TEST (07/28/19) HYDRATE IV INFUSION ADD-ON (10/02/17) IIV NO PRSV INCREASED AG IM (08/26/19) IMMUNIZATION ADMIN (06/26/19) IMMUNOHISTO ANTB 1ST STAIN (02/06/18) LIPID PANEL (07/28/19) MASSAGE THERAPY (11/29/14) MEASURE BLOOD OXYGEN LEVEL (11/29/14) METABOLIC PANEL TOTAL CA (09/11/17) MR-STAPH DNA AMP PROBE (11/29/14) MRI BRAIN STEM W/O DYE (03/04/19) MRI CHEST W/O DYE (01/07/18) MRI NECK SPINE W/O DYE (03/04/19) OFFICE/OUTPATIENT VISIT EST (08/26/19) OFFICE/OUTPATIENT VISIT EST (10/07/17) OT EVALUATION (11/29/14) PROTHROMBIN TIME (08/26/19) PT EVALUATION (11/29/14) RBC SED RATE AUTOMATED (12/29/15) ROUTINE VENIPUNCTURE (08/26/19) RPR S/N/AX/GEN/TRNK 2.5CM/< (06/26/19) RPR S/N/AX/GEN/TRNK2.6-7.5CM (10/05/18) SCR MAMMO BI INCL CAD (01/14/18) SELF CARE MNGMENT TRAINING (11/29/14) THER/PROPH/DIAG INJ IV PUSH (06/03/19) THERAPEUTIC ACTIVITIES (11/29/14) THERAPEUTIC EXERCISES (11/29/14) THROMBOPLASTIN TIME PARTIAL (08/26/19) TX/PRO/DX INJ SAME DRUG 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) ULTRASOUND BREAST COMPLETE (11/08/16) ULTRASOUND BREAST LIMITED (01/23/18) UR ALBUMIN QUANTITATIVE (04/26/17) URINALYSIS AUTO W/SCOPE (03/19/18) URINE BACTERIA CULTURE (11/29/14) US EXAM CHEST (01/02/18) US EXAM OF HEAD AND NECK (03/19/18) VITAMIN B-12 (10/28/18) VITAMIN D 25 HYDROXY (01/08/18) X-RAY EXAM CHEST 1 VIEW (06/03/19) X-RAY EXAM CHEST 2 VIEWS (08/26/19) X-RAY EXAM KNEE 4 OR MORE (07/29/17) X-RAY EXAM L-S SPINE 2/3 VWS (08/14/17) X-RAY EXAM OF ABDOMEN (10/07/17) X-RAY EXAM OF ANKLE (09/19/17) X-RAY EXAM OF FOOT (09/19/17) X-RAY EXAM OF HAND (06/26/19) X-RAY EXAM OF KNEE 1 OR 2 (12/15/14) X-RAY EXAM OF LOWER LEG (12/15/14) X-RAY EXAM OF THIGH (03/06/15) Plan: Case was discussed with Meng Pretty and agree with his assessment and plan set forth for this patient.
[2019-09-21] MEDS ORDERED: HYDROmorphone 0.5 MG/0.5 ML Syringe IVPUSH PRN (07:43)
[2019-09-21] MEDS ORDERED: fentaNYL 100 MCG/2 ML SDV IVPUSH PRN (07:43)
[2019-09-21] MEDS: Iodine/Sodium Iodide 2% Tincture 30 ML Bottle ONE ×2 (07:50→08:05)
[2019-09-21] MEDS: ceFAZolin 1 GM Vial ONE ×2 (07:51→08:10)
[2019-09-21] MEDS: Bupivacaine 0.25% 10 ML SDV ONE ×2 (07:52→08:13)
[2019-09-21] MEDS: Vancomycin 1 GM SDV ONE ×2 (07:52→08:15)
[2019-09-21] MEDS: Morphine 8 MG, EPINEPHrine 0.3 MG, Cefuroxime 750 MG, Ketorolac 30 MG, Sodium Chloride ... ONE ×15 (07:52→17:28)
[2019-09-21] MEDS ORDERED: ePHEDrine/Normal Saline 25 MG/5 ML Syringe ONE (07:59)
[2019-09-21] MEDS ORDERED: Lactated Ringers 1,000 ML ONE (08:05)
--- NOTE | 2019-09-21 08:49 | PCM.POSTAN ---
POST ANESTHESIA ASSESSMENT - MENTAL STATUS Mental Status: Alert, Oriented - VITAL SIGNS Vital Signs: Last Vital Signs Temp 98.7 F 09/21/19 06:15 Pulse 92 09/21/19 06:15 Resp 16 09/21/19 06:15 BP 150/80 H 09/21/19 06:15 Pulse Ox 93 L 09/21/19 06:15 0841 103/67 68 10 97% 97.0 - RESPIRATORY Respiratory Status: Respiratory Rate WNL, Airway Patent, O2 Saturation Stable, Supplemental Oxygen - CARDIOVASCULAR CV Status: Pulse Rate WNL, Blood Pressure Stable - GASTROINTESTINAL GI Status: No Symptoms - PAIN Pain Score: 0 - POST OP HYDRATION Hydration Status: Adequate & Stable
--- NOTE | 2019-09-21 10:22 | CR ---
Pelvis and right hip: AP view of the pelvis was obtained as well as lateral view of the right hip. Comparison: Previous pelvis exam of 0 . Findings: Left hip prosthesis is noted. This appears similar to prior exam. Right hip prosthesis is noted which has been recently placed. Components are aligned within both prosthesis. Slight degenerative change is scattered within the visualized lower lumbar spine. Bony structures are osteopenic. Impression: 1. Bilateral hip prosthesis, right hip prosthesis recently placed. 2. Osteopenia. Degenerative change within the lumbar spine. Diagnostic code #2
[2019-09-21] MEDS: Acetaminophen/HYDROcodone 325-5 MG Tab PO PRN ×3 (10:58→21:30)
[2019-09-21] MEDS ORDERED: Ketorolac 15 MG/ML SDV IVPUSH PRN (12:00)
[2019-09-21] MEDS: ceFAZolin 2 GM in Premix Bag 1 BAG IV SCH ×2 (14:35→21:34)
[2019-09-21] MEDS: Insulin Lispro 100 Units/ML 3 ML Vial SUBCUT SCH ×2 (17:29→21:46)
[2019-09-21] MEDS ORDERED: Oxybutynin 5 MG Tab PO SCH (21:00)
[2019-09-21] MEDS ORDERED: Non-Formulary Medication 1 Each (Pravastatin [Pravachol] 80 MG) PO SCH (21:00)
[2019-09-21] MEDS ORDERED: Famotidine 20 MG Tab PO SCH (21:00)
[2019-09-21] MEDS: Docusate Sodium 100 MG Cap PO SCH (21:22)
[2019-09-22] MEDS: Acetaminophen/HYDROcodone 325-5 MG Tab PO PRN (04:59)
[2019-09-22] MEDS: ceFAZolin 2 GM in Premix Bag 1 BAG IV SCH (06:36)
[2019-09-22] MEDS ORDERED: oxyCODONE 5 MG Tab PO PRN (07:50)
--- NOTE | 2019-09-22 07:58 | PCM.SURGPN ---
- General Info Date of Service: 09/22/19 POD#: 1 Functional Status: Reports: Pain Controlled, Tolerating Diet, Ambulating, Urinating, Incentive Spirometry, Other (The pt states her pain is controlled.) - Patient Data Vitals - Most Recent: Last Vital Signs Temp 98.6 F 09/22/19 04:28 Pulse 96 09/22/19 06:28 Resp 16 09/22/19 04:28 BP 134/77 09/22/19 04:28 Pulse Ox 96 09/22/19 06:28 Weight - Most Recent: 135 lb I&O - Last 24 Hours: Intake & Output 09/21/19 09/22/19 09/22/19 22:59 06:59 14:59 Intake Total 1560 550 Output Total 1000 600 Balance 560 -50 Lab Results Last 24 Hrs: Laboratory Results - last 24 hr 09/21/19 09/21/19 09/21/19 Range/Units 10:57 12:55 17:17 WBC (3.98-10.04) K/mm3 RBC (3.98-5.22) M/mm3 Hgb (11.2-15.7) gm/dl Hct (34.1-44.9) % MCV (79.4-94.8) fl MCH (25.6-32.2) pg MCHC (32.2-35.5) g/dl RDW Std Deviation (36.4-46.3) fL Plt Count (182-369) K/mm3 MPV (9.4-12.3) fl Sodium (136-145) mEq/L Potassium (3.5-5.1) mEq/L Chloride (98-107) mEq/L Carbon Dioxide (21-32) mEq/L Anion Gap (5-15) BUN (7-18) mg/dL Creatinine (0.55-1.02) mg/dL Est Cr Clr Drug Dosing mL/min Estimated GFR (MDRD) (>60) mL/min BUN/Creatinine Ratio (14-18) Glucose (83-115) mg/dL POC Glucose 128 H 121 H (83-110) mg/dL Calcium (8.5-10.1) mg/dL Total Bilirubin (0.2-1.0) mg/dL AST (15-37) U/L ALT (14-59) U/L Alkaline Phosphatase (46-116) U/L Troponin I 0.019 (0.00-0.056) ng/mL Total Protein (6.4-8.2) g/dl Albumin (3.4-5.0) g/dl Globulin gm/dL Albumin/Globulin Ratio (1-2) 09/21/19 09/22/19 09/22/19 Range/Units 21:32 05:15 05:15 WBC 7.58 (3.98-10.04) K/mm3 RBC 4.08 (3.98-5.22) M/mm3 Hgb 11.4 D (11.2-15.7) gm/dl Hct 36.9 (34.1-44.9) % MCV 90.4 (79.4-94.8) fl MCH 27.9 (25.6-32.2) pg MCHC 30.9 L (32.2-35.5) g/dl RDW Std Deviation 45.1 (36.4-46.3) fL Plt Count 258 (182-369) K/mm3 MPV 9.5 (9.4-12.3) fl Sodium 137 (136-145) mEq/L Potassium 3.9 (3.5-5.1) mEq/L Chloride 101 (98-107) mEq/L Carbon Dioxide 28 (21-32) mEq/L Anion Gap 11.9 (5-15) BUN 20 H (7-18) mg/dL Creatinine 1.1 H (0.55-1.02) mg/dL Est Cr Clr Drug Dosing 29.24 mL/min Estimated GFR (MDRD) 47 (>60) mL/min BUN/Creatinine Ratio 18.2 H (14-18) Glucose 119 H (83-115) mg/dL POC Glucose 364 H (83-110) mg/dL Calcium 8.7 (8.5-10.1) mg/dL Total Bilirubin 0.5 (0.2-1.0) mg/dL AST 751 H (15-37) U/L ALT 485 H (14-59) U/L Alkaline Phosphatase 157 H (46-116) U/L Troponin I (0.00-0.056) ng/mL Total Protein 6.1 L (6.4-8.2) g/dl Albumin 2.9 L (3.4-5.0) g/dl Globulin 3.2 gm/dL Albumin/Globulin Ratio 0.9 L (1-2) 09/22/19 Range/Units 06:28 WBC (3.98-10.04) K/mm3 RBC (3.98-5.22) M/mm3 Hgb (11.2-15.7) gm/dl Hct (34.1-44.9) % MCV (79.4-94.8) fl MCH (25.6-32.2) pg MCHC (32.2-35.5) g/dl RDW Std Deviation (36.4-46.3) fL Plt Count (182-369) K/mm3 MPV (9.4-12.3) fl Sodium (136-145) mEq/L Potassium (3.5-5.1) mEq/L Chloride (98-107) mEq/L Carbon Dioxide (21-32) mEq/L Anion Gap (5-15) BUN (7-18) mg/dL Creatinine (0.55-1.02) mg/dL Est Cr Clr Drug Dosing mL/min Estimated GFR (MDRD) (>60) mL/min BUN/Creatinine Ratio (14-18) Glucose (83-115) mg/dL POC Glucose 114 H (83-110) mg/dL Calcium (8.5-10.1) mg/dL Total Bilirubin (0.2-1.0) mg/dL AST (15-37) U/L ALT (14-59) U/L Alkaline Phosphatase (46-116) U/L Troponin I (0.00-0.056) ng/mL Total Protein (6.4-8.2) g/dl Albumin (3.4-5.0) g/dl Globulin gm/dL Albumin/Globulin Ratio (1-2) Med Orders - Current: Current Medications Apixaban (Eliquis) 2.5 mg PO BID [facility] Bisacodyl (Dulcolax) 5 mg PO DAILY PRN PRN Reason: Constipation Calcium Carbonate/Glycine (Calcium Carbonate) 600 mg PO DAILY [facility] Cholecalciferol (Vitamin D3) 5,000 unit PO DAILY [facility] Diltiazem HCl (Dilacor Xr) 240 mg PO DAILY [facility] Docusate Sodium (Colace) 100 mg PO BID [facility] Last Admin: 09/21/19 21:22 Dose: 100 mg Insulin Human Lispro (Humalog) 0 unit SUBCUT QIDACANDBED [facility]; Protocol Last Admin: 09/21/19 21:46 Dose: 5 units Ketorolac Tromethamine (Toradol) 15 mg IVPUSH Q6H PRN PRN Reason: Pain Last Admin: 09/22/19 04:36 Dose: 15 mg Levothyroxine Sodium (Levothyroxine) 112 mcg PO DAILY [facility] Losartan Potassium (Cozaar) 50 mg PO DAILY [facility] Magnesium Hydroxide (Milk Of Magnesia) 30 ml PO BID PRN PRN Reason: Constipation Morphine Sulfate (Morphine) 2 mg IVPUSH Q2H PRN PRN Reason: Breakthrough Pain Naloxone HCl (Narcan) 0.1 mg IVPUSH Q5M PRN PRN Reason: Oversedation Non-Formulary Medication (Pravastatin [Pravachol]) 80 mg PO BEDTIME [facility] Ondansetron HCl (Zofran) 4 mg IVPUSH Q6H PRN PRN Reason: Nausea/Vomiting Last Admin: 09/21/19 11:30 Dose: 4 mg Oxybutynin Chloride (Oxybutynin) 5 mg PO BEDTIME [facility] Last Admin: 09/21/19 21:23 Dose: 5 mg Oxycodone HCl (Oxycodone) 5 - 10 mg PO Q6H PRN PRN Reason: Pain Pantoprazole Sodium (Protonix) 40 mg PO DAILY [facility] Timolol Maleate/Latanoprost/Pf [ Timolol 0.5%- Latanopros 0 0 each EYEBOTH DAILY [facility] Senna (Senna) 8.6 mg PO BID PRN PRN Reason: Constipation Sodium Chloride (Saline Flush) 10 ml FLUSH ASDIRECTED PRN PRN Reason: Keep Vein Open Venlafaxine HCl (Effexor Xr) 75 mg PO DAILY [facility] Venlafaxine HCl (Effexor) 37.5 mg PO DAILY [facility] Discontinued Medications Hydrocodone Bitart/Acetaminophen (Cozad 325-5 Mg) 1 - 2 tab PO Q4H PRN PRN Reason: Pain Last Admin: 09/22/19 04:59 Dose: 1 tab Bupivacaine HCl (Sensorcaine-Mpf 0.25%) Confirm Administered Dose 30 ml .ROUTE .STK-MED ONE Stop: 09/21/19 06:18 Last Admin: 09/21/19 08:13 Dose: 30 ml Cefazolin Sodium (Ancef) Confirm Administered Dose 2 gm .ROUTE .STK-MED ONE Stop: 09/21/19 06:18 Last Admin: 09/21/19 08:10 Dose: 2 gm Cefazolin Sodium (Ancef) Confirm Administered Dose 2 gm .ROUTE .STK-MED ONE Stop: 09/21/19 06:18 Morphine Sulfate 8 mg/Epinephrine HCl 0.3 mg/Cefuroxime Sodium 750 mg/Ketorolac Tromethamine 30 mg/Sodium Chloride 27.9 ml 0 mg .XX ONETIME ONE Stop: 09/21/19 07:46 Last Admin: 09/21/19 17:28 Dose: Not Given Ephedrine Sulfate (Ephedrine In Ns) Confirm Administered Dose 25 mg .ROUTE .STK- MED ONE Stop: 09/21/19 08:00 Famotidine (Pepcid) 20 mg PO Q12H [facility] Fentanyl (Sublimaze) Confirm Administered Dose 100 mcg .ROUTE .STK-MED ONE Stop: 09/21/19 06:16 Fentanyl (Sublimaze) 50 mcg IVPUSH Q5M PRN PRN Reason: Pain Stop: 09/21/19 12:00 Hydromorphone HCl (Dilaudid) 0.5 mg IVPUSH Q10M PRN PRN Reason: Pain (severe 7-10) Stop: 09/21/19 12:00 Lactated Ringer's (Ringers, Lactated) 1,000 mls @ 125 mls/hr IV ASDIRECTED [facility] Last Admin: 09/21/19 06:34 Dose: 125 mls/hr Lidocaine HCl (Xylocaine-Mpf 1%) Confirm Administered Dose 4 mls @ as directed .ROUTE .STK-MED ONE Stop: 09/21/19 06:15 Cefazolin Sodium/Dextrose 2 gm (/ Premix) 50 mls @ 100 mls/hr IV Q8H [facility] Stop: 09/22/19 06:59 Last Admin: 09/22/19 06:36 Dose: 100 mls/hr Lactated Ringer's (Ringers, Lactated) Confirm Administered Dose 1,000 mls @ as directed .ROUTE .STK-MED ONE Stop: 09/21/19 08:06 Iodine (Iodine 2% Mild Tincture) Confirm Administered Dose 30 ml .ROUTE .STK- MED ONE Stop: 09/21/19 06:18 Last Admin: 09/21/19 08:05 Dose: 18 ml Lidocaine/Sodium Bicarbonate (Buffered Lidocaine 1% In Ns 8.4%) 0.25 ml IDERM ONETIME PRN PRN Reason: Prior to IV Start Last Admin: 09/21/19 06:34 Dose: 0.25 ml Midazolam HCl (Versed 1 Mg/Ml) Confirm Administered Dose 2 mg .ROUTE .STK-MED ONE Stop: 09/21/19 06:16 Ondansetron HCl (Zofran) 4 mg IVPUSH ONETIME PRN PRN Reason: Nausea/Vomiting Stop: 09/21/19 12:00 Phenylephrine HCl (Phenylephrine In Ns 100 Mcg/Ml) Confirm Administered Dose 1 mg .ROUTE .STK-MED ONE Stop: 09/21/19 07:16 Propofol (Diprivan 20 Ml) Confirm Administered Dose 400 mg .ROUTE .STK-MED ONE Stop: 09/21/19 06:16 Rivaroxaban (Xarelto) 10 mg PO DAILY [facility] Tranexamic Acid (Cyklokapron) Confirm Administered Dose 1,000 mg .ROUTE .STK- MED ONE Stop: 09/21/19 06:18 Last Admin: 09/21/19 08:15 Dose: 1,000 mg Vancomycin HCl (Vancomycin) Confirm Administered Dose 1 gm .ROUTE .STK-MED ONE Stop: 09/21/19 06:18 Last Admin: 09/21/19 08:15 Dose: 1 gm - Exam Wound/Incisions: Dressing Dry and Intact General: Alert, Cooperative, No Acute Distress Lungs: Normal Respiratory Effort Extremities: Other (NVS intact for BLE. Madison's negative. Right thigh soft.) - Problem List Review Problem List Initiated/Reviewed/Updated: Yes - My Orders Last 24 Hours: Active Orders 24 hr Category Date Time Status Patient Status [ADT] Routine ADT 09/21/19 14:34 Active Blood Glucose Check, Bedside [RC] QIDACANDBED Care 09/21/19 16:43 Active Communication Order [RC] ASDIRECTED Care 09/22/19 07:54 Active Cooling Warming Measures [RC] ASDIRECTED Care 09/21/19 07:43 Inactive Oxygen Therapy [RC] ASDIRECTED Care 09/21/19 07:43 Inactive Pulse Oximetry [RC] ASDIRECTED Care 09/21/19 07:43 Inactive Ready for Discharge [RC] PER UNIT ROUTINE Care 09/22/19 07:53 Active Vital Signs [RC] Q15M Care 09/21/19 07:43 Inactive ADA Diabetic [[place] [employer] Diet] [DIET Diet 09/21/19 Lunch Active ] Apixaban [Eliquis] Med 09/22/19 09:00 Active 2.5 mg PO BID Calcium Carbonate Med 09/22/19 09:00 Active 600 mg PO DAILY Cholecalciferol (Vitamin D3) [Vitamin D3] Med 09/22/19 09:00 Active 5,000 unit PO DAILY Diltiazem [Dilacor XR] Med 09/22/19 09:00 Active 240 mg PO DAILY Docusate Sodium [Colace] Med 09/21/19 21:00 Active 100 mg PO BID Insulin Lispro [HumaLOG] Med 09/21/19 17:00 Active See Protocol SUBCUT QIDACANDBED Ketorolac [Toradol] Med 09/21/19 12:00 Active 15 mg IVPUSH Q6H PRN Levothyroxine Med 09/22/19 09:00 Active 112 mcg PO DAILY Losartan [Cozaar] Med 09/22/19 09:00 Active 50 mg PO DAILY Oxybutynin Med 09/21/19 21:00 Active 5 mg PO BEDTIME Pantoprazole [ProTONIX] Med 09/22/19 09:00 Active 40 mg PO DAILY Patient's Own Medication [Ptom] Med 09/22/19 09:00 Active 0 each EYEBOTH DAILY Pravastatin [Pravachol] Med 09/21/19 21:00 Pending 80 mg PO BEDTIME Venlafaxine [Effexor XR] Med 09/22/19 09:00 Active 75 mg PO DAILY Venlafaxine [Effexor] Med 09/22/19 09:00 Active 37.5 mg PO DAILY oxyCODONE Med 09/22/19 07:50 Active 5 - 10 mg PO Q6H PRN EKG 12 Lead [EK] Routine Ther 09/21/19 12:42 Ordered Medication Orders Apixaban (Eliquis) 2.5 mg PO BID [facility] Bisacodyl (Dulcolax) 5 mg PO DAILY PRN PRN Reason: Constipation Calcium Carbonate/Glycine (Calcium Carbonate) 600 mg PO DAILY [facility] Cholecalciferol (Vitamin D3) 5,000 unit PO DAILY [facility] Diltiazem HCl (Dilacor Xr) 240 mg PO DAILY [facility] Docusate Sodium (Colace) 100 mg PO BID [facility] Last Admin: 09/21/19 21:22 Dose: 100 mg Insulin Human Lispro (Humalog) 0 unit SUBCUT QIDACANDBED [facility]; Protocol Last Admin: 09/21/19 21:46 Dose: 5 units Admin: 09/21/19 17:29 Dose: Not Given Ketorolac Tromethamine (Toradol) 15 mg IVPUSH Q6H PRN PRN Reason: Pain Last Admin: 09/22/19 04:36 Dose: 15 mg Levothyroxine Sodium (Levothyroxine) 112 mcg PO DAILY [facility] Losartan Potassium (Cozaar) 50 mg PO DAILY [facility] Magnesium Hydroxide (Milk Of Magnesia) 30 ml PO BID PRN PRN Reason: Constipation Morphine Sulfate (Morphine) 2 mg IVPUSH Q2H PRN PRN Reason: Breakthrough Pain Naloxone HCl (Narcan) 0.1 mg IVPUSH Q5M PRN PRN Reason: Oversedation Non-Formulary Medication (Pravastatin [Pravachol]) 80 mg PO BEDTIME [facility] Ondansetron HCl (Zofran) 4 mg IVPUSH Q6H PRN PRN Reason: Nausea/Vomiting Last Admin: 09/21/19 11:30 Dose: 4 mg Oxybutynin Chloride (Oxybutynin) 5 mg PO BEDTIME [facility] Last Admin: 09/21/19 21:23 Dose: 5 mg Oxycodone HCl (Oxycodone) 5 - 10 mg PO Q6H PRN PRN Reason: Pain Pantoprazole Sodium (Protonix) 40 mg PO DAILY [facility] Timolol Maleate/Latanoprost/Pf [ Timolol 0.5%- Latanopros 0 0 each EYEBOTH DAILY [facility] Senna (Senna) 8.6 mg PO BID PRN PRN Reason: Constipation Sodium Chloride (Saline Flush) 10 ml FLUSH ASDIRECTED PRN PRN Reason: Keep Vein Open Venlafaxine HCl (Effexor Xr) 75 mg PO DAILY [facility] Venlafaxine HCl (Effexor) 37.5 mg PO DAILY [facility] - Assessment Assessment (Free Text/Narrative):: POD#1 - s/p right WALTER - Plan Plan (Free Text/Narrative):: 1. Discharge to home today if cleared by Hospitalist service. 2. Hgb 11.4. 3. LFTs elevated - d/c Cozad and change to oxycodone (without APAP). Further orders per Hospitalist service. 4. Xarelto d/c and Eliquis provided due to creat clearance. The pt's case was discussed with Dr. Prieto.
[2019-09-22] MEDS ORDERED: Rivaroxaban 10 MG Tab PO SCH (09:00)
[2019-09-22] MEDS ORDERED: Venlafaxine 75 MG Cap.ER PO SCH (09:00)
[2019-09-22] MEDS ORDERED: Cholecalciferol (Vitamin D3) 5,000 UNIT Tab PO SCH (09:00)
[2019-09-22] MEDS ORDERED: TIMOLOL MALEATE EYEBOTH SCH (09:00)
[2019-09-22] MEDS ORDERED: Levothyroxine 112 MCG Tab PO SCH (09:00)
[2019-09-22] MEDS ORDERED: Pantoprazole 40 MG Tab.CR PO SCH (09:00)
[2019-09-22] MEDS ORDERED: Apixaban 2.5 MG Tab PO SCH (09:00)
[2019-09-22] MEDS ORDERED: LATANOPROST EYEBOTH SCH (09:00)
[2019-09-22] MEDS ORDERED: Venlafaxine 37.5 MG Tab PO SCH (09:00)
[2019-09-22] MEDS ORDERED: Diltiazem 240 MG Cap.ER PO SCH (09:00)
[2019-09-22] MEDS ORDERED: Losartan 25 MG Tab PO SCH (09:00)
[2019-09-22] MEDS ORDERED: Calcium Carbonate 600 MG Tab PO SCH (09:00)
[2019-09-22] MEDS: Insulin Lispro 100 Units/ML 3 ML Vial SUBCUT SCH ×3 (09:10→20:19)
[2019-09-22] MEDS: Docusate Sodium 100 MG Cap PO SCH (09:12)
[2019-09-22 11:38] LABS: ACETAMINOPHEN 2 ug/mL (10-30)
--- NOTE | 2019-09-22 11:40 | PCM48HPAN ---
Post Anesthesia Note - EVALUATION WITHIN 48HRS OF ANESTHETIC Vital Signs in Normal Range: Yes Patient Participated in Evaluation: Yes Respiratory Function Stable: Yes Airway Patent: Yes Cardiovascular Function Stable: Yes Hydration Status Stable: Yes Pain Control Satisfactory: Yes Nausea and Vomiting Control Satisfactory: Yes Mental Status Recovered: Yes Vital Signs: Last Vital Signs Temp 37.4 C 09/22/19 08:06 Pulse 86 09/22/19 08:06 Resp 16 09/22/19 08:06 BP 115/64 09/22/19 09:13 Pulse Ox 90 L 09/22/19 08:06
[2019-09-22 19:23] VITALS: BP 123/81; PULSE 86
--- NOTE | 2019-09-24 15:52 | PCM.DCSUM1 ---
Discharge Summary - Hospital Course Brief History: Kavitha is an 83 yo female who underwent right WALTER with Dr. Prieto on 09-21-2019. The procedure was completed under spinal anesthesia with sedation. The pt tolerated the procedure well and was admitted to the Medical- Surgical Unit. Medical management was provided by the Hospitalist service. The pt's Hospital course was remarkable for post-op elevation of LFTs. The Hospitalist service evaluated and monitored the LFTs. The pt's Hgb on POD#1 was 11.4. On POD#1, Xarelto 10mg PO daily was initiated for VTE prophylaxis. SCDs and TEDs were also ordered. A Mepilex dressing was placed at the incision site at the time of surgery and remained clean and dry. The pt participated in P.T. and O.T. and progressed well. She followed the WALTER precautions. The pt was allowed to WBAT. On POD#1, the pt was deemed appropriate to discharge to home with her daughters. - Discharge Data Discharge Date: 09/22/19 Discharge Disposition: Home, Self-Care 01 Condition: Good - Referral to Home Health Primary Care Physician: Balbina García NP - Patient Summary/Data Consults: Consultations 09/21/19 06:12 PT Evaluation and Treatment [CONS] Routine 09/21/19 06:13 OT Evaluation and Treatment [CONS] Routine 09/21/19 06:14 Consult to Physician [CONS] Routine - Patient Instructions Diet: Usual Diet as Tolerated Activity: Apply Ice, As Tolerated, Elevate Extremity, Full Weight Bearing Activity, Other: Follow the total hip precautions. Driving: Do Not Drive Showering/Bathing: May Shower Wound/Incision Care: Keep Operative Site/Wound Site Clean and Dry, Do NOT Change Dressing Notify Provider of: Fever, Increased Pain, Swelling and Redness, Drainage, Nausea and/or Vomiting Other/Special Instructions: Please get up and moving around EVERY HOUR while awake. This helps to prevent blood clots. Please use your walker and have help with mobility as needed. Take a short walk in your home every hour while awake. Please take the Eliquis blood thinner medication twice daily as directed. At home, please complete the exercises that you learned during the Hospital stay. Schedule for physical therapy. Follow the total hip precautions. Use the pain medication as needed. The medication may cause drowsiness and constipation. Contact your primary care provider for instructions if you are constipated. You may use a stool softener like docusate sodium or Colace 100mg twice daily and/or a laxative like Miralax daily for constipation. Increase your water and fiber intake while you are using the pain medication. You could try a quarter or a half tab of the pain pill initially and if needed, take the other half. Discontinue use of the pain medication as soon as able. Please do not use other medications that may cause drowsiness (other pain medications, anxiety pills, cold medications, sleeping pills, etc) while using the prescription pain medication. Do not use alcohol while using the pain medication. Please do not use Tylenol or acetaminophen at this time due to elevated liver tests. Please schedule a follow-up appointment with your primary care provider to monitor and further evaluate your liver tests. At this time, please do not use ibuprofen (Motrin, Advil) or naproxen ( Aleve) for pain management as you are using the Eliquis blood thinner medication. When the Eliquis course is completed in 5 weeks (10-27-2019), you could use ibuprofen or naproxen for pain management (if this is allowed by your primary care provider). Wear the DEBBIE hose during the day and you may remove these at night. Elevate the limb to decrease swelling. Place ice to the area often. Place a towel between your skin and the blue pad. Use the incentive spirometer often. Take deep breaths throughout the day. Please keep the dressing in place until follow-up. Notify the Clinic if the dressing becomes saturated. Increase your protein intake while you are healing. Please closely monitor your blood sugars and notify your primary care provider with abnormal values. Elevated blood sugars increases the risk of infection. Call the Clinic with questions or concerns - [phone]. - Discharge Plan *PRESCRIPTION DRUG MONITORING PROGRAM REVIEWED*: No *COPY OF PRESCRIPTION DRUG MONITORING REPORT IN PATIENT LILI: No Prescriptions/Med Rec: Apixaban [Eliquis] 2.5 mg PO BID #70 tablet oxyCODONE 5 - 10 mg PO Q6H PRN #40 tab PRN Reason: Pain Home Medications: Home Meds Diltiazem [Cardizem CD] 240 mg PO DAILY 11/26/14 [History] Levothyroxine 112 mcg PO DAILY 11/26/14 [History] Cholecalciferol (Vitamin D3) [Vitamin D3] 5,000 unit PO DAILY 10/02/17 [History] Losartan Potassium [Cozaar] 50 mg PO DAILY 10/02/17 [History] Oxybutynin Chloride 5 mg PO BEDTIME 10/02/17 [History] metFORMIN [Glucophage] 500 mg PO BID 10/02/17 [History] Calcium Carbonate [Calcium] 600 mg PO DAILY 05/05/18 [History] Omeprazole 20 mg PO DAILY 06/03/19 [History] Timolol Maleate/Latanoprost/Pf [Timolol 0.5%-Latanopros 0.005%] 1 drop EYEBOTH DAILY 06/03/19 [History] Venlafaxine [Effexor] 75 mg PO DAILY 06/03/19 [History] Venlafaxine [Effexor XR] 37.5 mg PO DAILY 06/26/19 [History] Apixaban [Eliquis] 2.5 mg PO BID #70 tablet 09/22/19 [Rx] Bisacodyl [Dulcolax] 5 mg PO DAILY PRN tablet 09/22/19 [Rx] Docusate Sodium [Colace] 100 mg PO BID cap 09/22/19 [Rx] Sennosides [Senna] 8.6 mg PO BID PRN tablet 09/22/19 [Rx] oxyCODONE 5 - 10 mg PO Q6H PRN #40 tab 09/22/19 [Rx] Referrals: Balbina García, [employer] [Primary Care Provider] - 09/29/19 8:00 am (Please check in at 7:45 am. ) Pat Ramirez PA-C [[employer]ician [employer]] - 09/30/19 1:15 pm (Please follow up with Dr. Prieto on Monday September 30, 2019 at 1:15 PM. Please follow up with ALEKSANDRA Wright on Sunday October 06, 2019 at 9:30 AM and on Sunday, November 03, 2019 at 10:30 AM. ) - Discharge Summary/Plan Comment DC Time >30 min.: No - Patient Data Vitals - Most Recent: Last Vital Signs Temp 97.9 F 09/22/19 15:15 Pulse 86 09/22/19 15:15 Resp 16 09/22/19 12:02 BP 123/81 09/22/19 15:15 Pulse Ox 94 L 09/22/19 15:15 Weight - Most Recent: 135 lb Med Orders - Current: Current Medications Discontinued Medications Hydrocodone Bitart/Acetaminophen (Sebastian 325-5 Mg) 1 - 2 tab PO Q4H PRN PRN Reason: Pain Last Admin: 09/22/19 04:59 Dose: 1 tab Apixaban (Eliquis) 2.5 mg PO BID [facility] Last Admin: 09/22/19 09:14 Dose: 2.5 mg Bisacodyl (Dulcolax) 5 mg PO DAILY PRN PRN Reason: Constipation Bupivacaine HCl (Sensorcaine-Mpf 0.25%) Confirm Administered Dose 30 ml .ROUTE .STK-MED ONE Stop: 09/21/19 06:18 Last Admin: 09/21/19 08:13 Dose: 30 ml Calcium Carbonate/Glycine (Calcium Carbonate) 600 mg PO DAILY [facility] Last Admin: 09/22/19 09:12 Dose: 600 mg Cefazolin Sodium (Ancef) Confirm Administered Dose 2 gm .ROUTE .STK-MED ONE Stop: 09/21/19 06:18 Last Admin: 09/21/19 08:10 Dose: 2 gm Cefazolin Sodium (Ancef) Confirm Administered Dose 2 gm .ROUTE .STK-MED ONE Stop: 09/21/19 06:18 Cholecalciferol (Vitamin D3) 5,000 unit PO DAILY [facility] Last Admin: 09/22/19 09:15 Dose: 5,000 unit Morphine Sulfate 8 mg/Epinephrine HCl 0.3 mg/Cefuroxime Sodium 750 mg/Ketorolac Tromethamine 30 mg/Sodium Chloride 27.9 ml 0 mg .XX ONETIME ONE Stop: 09/21/19 07:46 Last Admin: 09/21/19 17:28 Dose: Not Given Diltiazem HCl (Dilacor Xr) 240 mg PO DAILY [facility] Last Admin: 09/22/19 09:14 Dose: 240 mg Docusate Sodium (Colace) 100 mg PO BID [facility] Last Admin: 09/22/19 09:12 Dose: 100 mg Ephedrine Sulfate (Ephedrine In Ns) Confirm Administered Dose 25 mg .ROUTE .STK- MED ONE Stop: 09/21/19 08:00 Famotidine (Pepcid) 20 mg PO Q12H [facility] Fentanyl (Sublimaze) Confirm Administered Dose 100 mcg .ROUTE .STK-MED ONE Stop: 09/21/19 06:16 Fentanyl (Sublimaze) 50 mcg IVPUSH Q5M PRN PRN Reason: Pain Stop: 09/21/19 12:00 Hydromorphone HCl (Dilaudid) 0.5 mg IVPUSH Q10M PRN PRN Reason: Pain (severe 7-10) Stop: 09/21/19 12:00 Lactated Ringer's (Ringers, Lactated) 1,000 mls @ 125 mls/hr IV ASDIRECTED [facility] Last Admin: 09/21/19 06:34 Dose: 125 mls/hr Lidocaine HCl (Xylocaine-Mpf 1%) Confirm Administered Dose 4 mls @ as directed .ROUTE .K-MED ONE Stop: 09/21/19 06:15 Cefazolin Sodium/Dextrose 2 gm (/ Premix) 50 mls @ 100 mls/hr IV Q8H [facility] Stop: 09/22/19 06:59 Last Admin: 09/22/19 06:36 Dose: 100 mls/hr Lactated Ringer's (Ringers, Lactated) Confirm Administered Dose 1,000 mls @ as directed .ROUTE .STK-MED ONE Stop: 09/21/19 08:06 Insulin Human Lispro (Humalog) 0 unit SUBCUT QIDACANDBED [facility]; Protocol Last Admin: 09/22/19 20:19 Dose: Not Given Iodine (Iodine 2% Mild Tincture) Confirm Administered Dose 30 ml .ROUTE .STK- MED ONE Stop: 09/21/19 06:18 Last Admin: 09/21/19 08:05 Dose: 18 ml Ketorolac Tromethamine (Toradol) 15 mg IVPUSH Q6H PRN PRN Reason: Pain Last Admin: 09/22/19 04:36 Dose: 15 mg Levothyroxine Sodium (Levothyroxine) 112 mcg PO DAILY [facility] Last Admin: 09/22/19 09:14 Dose: 112 mcg Lidocaine/Sodium Bicarbonate (Buffered Lidocaine 1% In Ns 8.4%) 0.25 ml IDERM ONETIME PRN PRN Reason: Prior to IV Start Last Admin: 09/21/19 06:34 Dose: 0.25 ml Losartan Potassium (Cozaar) 50 mg PO DAILY [facility] Last Admin: 09/22/19 09:13 Dose: 50 mg Magnesium Hydroxide (Milk Of Magnesia) 30 ml PO BID PRN PRN Reason: Constipation Midazolam HCl (Versed 1 Mg/Ml) Confirm Administered Dose 2 mg .ROUTE .STK-MED ONE Stop: 09/21/19 06:16 Morphine Sulfate (Morphine) 2 mg IVPUSH Q2H PRN PRN Reason: Breakthrough Pain Naloxone HCl (Narcan) 0.1 mg IVPUSH Q5M PRN PRN Reason: Oversedation Non-Formulary Medication (Pravastatin [Pravachol]) 80 mg PO BEDTIME [facility] Ondansetron HCl (Zofran) 4 mg IVPUSH Q6H PRN PRN Reason: Nausea/Vomiting Last Admin: 09/21/19 11:30 Dose: 4 mg Ondansetron HCl (Zofran) 4 mg IVPUSH ONETIME PRN PRN Reason: Nausea/Vomiting Stop: 09/21/19 12:00 Oxybutynin Chloride (Oxybutynin) 5 mg PO BEDTIME [facility] Last Admin: 09/21/19 21:23 Dose: 5 mg Oxycodone HCl (Oxycodone) 5 - 10 mg PO Q6H PRN PRN Reason: Pain Last Admin: 09/22/19 11:37 Dose: 5 mg Pantoprazole Sodium (Protonix) 40 mg PO DAILY [facility] Last Admin: 09/22/19 09:14 Dose: 40 mg Timolol Maleate/Latanoprost/Pf [ Timolol 0.5%- Latanopros 0 0 each EYEBOTH DAILY [facility] Last Admin: 09/22/19 09:15 Dose: Not Given Phenylephrine HCl (Phenylephrine In Ns 100 Mcg/Ml) Confirm Administered Dose 1 mg .ROUTE .STK-MED ONE Stop: 09/21/19 07:16 Propofol (Diprivan 20 Ml) Confirm Administered Dose 400 mg .ROUTE .STK-MED ONE Stop: 09/21/19 06:16 Rivaroxaban (Xarelto) 10 mg PO DAILY [facility] Senna (Senna) 8.6 mg PO BID PRN PRN Reason: Constipation Sodium Chloride (Saline Flush) 10 ml FLUSH ASDIRECTED PRN PRN Reason: Keep Vein Open Tranexamic Acid (Cyklokapron) Confirm Administered Dose 1,000 mg .ROUTE .STK- MED ONE Stop: 09/21/19 06:18 Last Admin: 09/21/19 08:15 Dose: 1,000 mg Vancomycin HCl (Vancomycin) Confirm Administered Dose 1 gm .ROUTE .STK-MED ONE Stop: 09/21/19 06:18 Last Admin: 09/21/19 08:15 Dose: 1 gm Venlafaxine HCl (Effexor Xr) 75 mg PO DAILY [facility] Last Admin: 09/22/19 09:14 Dose: 75 mg Venlafaxine HCl (Effexor) 37.5 mg PO DAILY [facility] Last Admin: 09/22/19 09:15 Dose: 37.5 mg
--- NOTE | 2019-09-25 13:37 | PCM.OPNOTE ---
- General Post-Op/Procedure Note Date of Surgery/Procedure: 09/21/19 Operative Procedure(s): right total hip arthroplasty Pre Op Diagnosis: right hip osteoarthrosis Post-Op Diagnosis: Same Anesthesia Technique: Local, MAC, Spinal Primary Surgeon: Martin Prieto Anesthesia Provider: Willian Coles Therapist Asst: Pat Ramirez Therapist Asst: Fatmata Anaya EBMariah in mLs: 150 Complications: None Condition: Good Free Text/Narrative:: 52 2 36+0
--- NOTE | 2019-09-25 14:04 | OR ---
DATE OF OPERATION: 09/21/2019 SURGEON: Martin Prieto MD OPERATION PERFORMED: Right total hip arthroplasty. PREOPERATIVE DIAGNOSIS: Right hip osteoarthrosis. POSTOPERATIVE DIAGNOSIS: Right hip osteoarthrosis. ANESTHESIA: Local MAC with spinal. ANESTHESIA PROVIDER: Willian Coles CRNA ASSISTANTS: Pat Ramirez PA-C and Fatmata Anaya LPN ESTIMATED BLOOD LOSS: 150 mL. COMPLICATIONS: None. CONDITION: Stable. IMPLANTS: 1. Nam size 52-mm solid Tritanium II acetabular cup. 2. [place] size 2 Accolade II stem. 3. Nam size 36, +0 Biolox femoral head. DESCRIPTION OF PROCEDURE: The patient was identified in the preop holding area. Proper site was marked and identified by the surgeon. The patient was taken back to the operating theater where after adequate anesthesia, the patient was placed in a left lateral decubitus position. Axillary roll was placed. Pegs were placed and all bony prominences were well padded. At this time, the right hip was then sterilely prepped and draped in the usual sterile fashion. OR time-out was performed. The patient received 2 g IV Ancef. Standard posterior incision was made centered over the greater trochanter. This was taken down to the IT band and gluteal fascia was then incised along the incisional length. Charnley retractor was placed. Short external rotators were identified and takedown of short external rotators was done from the level of the piriformis down to the lesser trochanter. The hip was then dislocated. Neck cut was completed. Attention was turned to the acetabulum. Anterior and posterior acetabular retractors were placed and found to be adequate. Removal of the labrum as well as pulvinar was undertaken. Starting with a 48 reamer, I was able to ream up to a 52 which was found to have adequate bony purchase. The 52-mm Tritanium II acetabular cup was impacted in place in roughly 40 to 50 degrees of abduction and 20 to 30 degrees of anteversion. The 36 flat liner was then impacted into place and attention was turned to the femur. Box chisel was used out laterally. A starter awl was placed down the canal. Starting with the 0 broach, I was able to broach up to a size 2 which was found to be rotationally and vertically stable. A +0 was trialed and was found to have adequate temple of leg- lengths as well as full range of motion with no instability. Trial implants were then removed. The size 2 Accolade II stem was impacted in place along with a 36, +0 Biolox femoral head. Hip was then relocated. A #5 Ethibond suture was used for closure of the short external rotators and capsule. 1 L dilute Betadine solution was irrigated through the hip along with 3 L of pulse lavage irrigation with Ancef. Topical tranexamic acid as well as vancomycin powder was placed. A #2 barbed suture was used for closure of the IT band and gluteal fascia, 2-0 Vicryl was used subcutaneously, and Prineo was used for the skin. The patient tolerated the procedure well and was sent to PACU in stable condition. MIGUELITO /[id number]
== END 2019-09-22 18:00 | disposition home or self-care (01) | DRG 470 ==
LOC: JD.MS 06:00
PROVIDERS: ADMIT Orthopaedic Surgery; ATTEND Orthopaedic Surgery
PROC: 0SR903Z Replacement of Right Hip Joint with Ceramic Synthetic Substitute, Open Approach (ICD-10-PCS; principal; 2019-09-21)
DX: M16.11 Unilateral primary osteoarthritis, right hip (principal); F32.9 Major depressive disorder, single episode, unspecified; E11.9 Type 2 diabetes mellitus without complications; K21.9 Gastro-esophageal reflux disease without esophagitis; E78.5 Hyperlipidemia, unspecified; I10 Essential (primary) hypertension; E03.9 Hypothyroidism, unspecified; G47.00 Insomnia, unspecified; M54.5 Low back pain; Z96.649 Presence of unspecified artificial hip joint; E55.9 Vitamin D deficiency, unspecified; E78.00 Pure hypercholesterolemia, unspecified; F41.9 Anxiety disorder, unspecified; M81.0 Age-related osteoporosis without current pathological fracture; R74.0 Nonspecific elevation of levels of transaminase and lactic acid dehydrogenase [LDH]; E11.319 Type 2 diabetes mellitus with unspecified diabetic retinopathy without macular edema; Z90.49 Acquired absence of other specified parts of digestive tract; Z98.49 Cataract extraction status, unspecified eye; Z79.890 Hormone replacement therapy; Z79.899 Other long term (current) drug therapy; Z85.3 Personal history of malignant neoplasm of breast
CPT/HCPCS: 01214; 36415; 73501-26-RT; 73501-RT; 80053; 80074; 80076; 82962; 82977; 84484; 85027; 85610; 86850; 86900; 86901; 87641; 93005; 94761; 97110-GP; 97116-GP; 97161-GP; 97165-GO; 97535-GO; A9270-GY; C1776; G0480; J0171; J0690; J0697; J1815-GY; J1885; J2001; J2250; J2270; J2370; J2405; J2704; J3010; J3370; J3490; J7050; J7120

== ENCOUNTER 2020-10-27 07:57 | Day surgery (SDC) | payer MEDICARE, BC ==
[~2020-10-27 07:57] MED LIST changes: +FLU Vacc QV2020-21(65YR UP)/PF 240 MCG/0.7 ML Syringe IM ONE
[2020-10-27] MEDS ORDERED: fentaNYL 100 MCG/2 ML SDV ONE (08:02)
[2020-10-27] MEDS ORDERED: Propofol 200 MG/20 ML SDV ONE (08:02)
[2020-10-27] MEDS ORDERED: ceFAZolin 1 GM Vial ONE (08:02)
[2020-10-27] MEDS ORDERED: Lidocaine 1% 4 ML ONE (08:02)
[2020-10-27] MEDS ORDERED: Lidocaine 1% 30 ML SDV ONE (08:06)
[2020-10-27] MEDS ORDERED: Bupivacaine 0.25% 10 ML SDV ONE (08:06)
--- NOTE | 2020-10-27 09:02 | PCM.PREANE ---
Preanesthetic Assessment - Procedure Proposed Procedure: right carpal tunnel release - Anesthesia/Transfusion/Family Hx Anesthesia History: Prior Anesthesia Without Reaction Family History of Anesthesia Reaction: No Transfusion History: No Prior Transfusion(s) - Review of Systems General: No Symptoms Pulmonary: No Symptoms Cardiovascular: No Symptoms Gastrointestinal: No Symptoms Neurological: Numbness (bilateral hands) Other: Reports: None - Physical Assessment NPO Status Date: 10/26/20 NPO Status Time: 00:00 Vital Signs: Last Vital Signs Temp 36.4 C 10/27/20 08:10 Pulse 80 10/27/20 08:10 Resp 18 10/27/20 08:10 BP 105/80 10/27/20 08:10 Pulse Ox 94 L 10/27/20 08:10 Height: 1.6 m Weight: 64.7 kg ASA Class: 3 Mental Status: Alert & Oriented x3 Airway Class: Mallampati = 2 Dentition: Reports: Partial ( top) Thyro-Mental Finger Breadths: 3 Mouth Opening Finger Breadths: 3 ROM/Head Extension: Full Lungs: Clear to Auscultation, Normal Respiratory Effort Cardiovascular: Regular Rate, Regular Rhythm - Lab Values: Laboratory Last Values MRSA (PCR) Negative 10/05/20 10:20 - Allergies Allergies/Adverse Reactions: Allergies Allergy/AdvReac Type Severity Reaction Status Date / Time No Known Allergies Allergy Verified 10/26/20 17:37 - Blood Blood Available: No Product(s) Available: None - Anesthesia Plan Pre-Op Medication Ordered: None - Acknowledgements Anesthesia Type Planned: MAC Pt an Appropriate Candidate for the Planned Anesthesia: Yes Alternatives and Risks of Anesthesia Discussed w Pt/Guardian: Yes Pt/Guardian Understands and Agrees with Anesthesia Plan: Yes PreAnesthesia Questionnaire HEENT History: Reports: Hard of Hearing Other HEENT History: Tinnitus Cardiovascular History: Reports: Afib, High Cholesterol, Hypertension Respiratory History: Reports: Bronchitis, Recurrent Other Respiratory History: wheezing, hoarsness, URI- past smoker Gastrointestinal History: Reports: None Other Gastrointestinal History: change in bowel habits, abdominal discomfort Genitourinary History: Reports: None 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 Musculoskeletal History: Carpal Tunnel Syndrome Other Neuro History: Dizziness Psychiatric History: Reports: Anxiety, Depression Other Psychiatric History: insomnia Endocrine/Metabolic History: Reports: Diabetes, Type II, Hypothyroidism Hematologic History: Reports: None Immunologic History: Reports: None Oncologic (Cancer) History: Reports: Breast Dermatologic History: Reports: None Other Dermatologic History: soft tissue mass - Infectious Disease History Infectious Disease History: Reports: None - Past Surgical History GI Surgical History: Reports: Colonoscopy Other Musculoskeletal Surgeries/Procedures:: fractured femur and surgery - HOME MEDS Home Medications: Home Meds Diltiazem [Cardizem CD] 240 mg PO DAILY 11/26/14 [History] Cholecalciferol (Vitamin D3) [Vitamin D3] 5,000 unit PO DAILY 10/02/17 [History] Losartan Potassium [Cozaar] 50 mg PO DAILY 10/02/17 [History] Oxybutynin Chloride 5 mg PO BEDTIME 10/02/17 [History] metFORMIN [Glucophage] 500 mg PO BID 10/02/17 [History] Calcium Carbonate [Calcium] 600 mg PO DAILY 05/05/18 [History] Omeprazole 20 mg PO DAILY 06/03/19 [History] Timolol Maleate/Latanoprost/Pf [Timolol 0.5%-Latanopros 0.005%] 1 drop EYEBOTH DAILY 06/03/19 [History] Venlafaxine [Effexor] 75 mg PO DAILY 06/03/19 [History] Acetaminophen [Tylenol] 650 mg PO Q4H PRN 10/26/20 [History] Levothyroxine [Synthroid] 100 mcg PO DAILY 10/26/20 [History] Pravastatin Sodium 80 mg PO DAILY 10/26/20 [History] Tamoxifen Citrate 20 mg PO DAILY 10/26/20 [History] traMADol [Ultram] 50 - 100 mg PO Q8H PRN #8 tab 10/27/20 [Rx] - CURRENT (IN HOUSE) MEDS Current Meds: Current Medications Lactated Ringer's (Ringers, Lactated) 1,000 mls @ 125 mls/hr IV ASDIRECTED JESSIKA Stop: 10/27/20 23:00 Last Admin: 10/27/20 08:45 Dose: 125 mls/hr Documented by: Lidocaine/Sodium Bicarbonate (Buffered Lidocaine 1% In Ns 8.4%) 0.25 ml IDERM ONETIME PRN PRN Reason: Prior to IV Start Stop: 10/27/20 18:00 Last Admin: 10/27/20 08:10 Dose: 0.25 ml Documented by: Sodium Chloride (Saline Flush) 10 ml FLUSH ASDIRECTED PRN PRN Reason: Keep Vein Open Stop: 10/27/20 18:00 Discontinued Medications Bupivacaine HCl (Sensorcaine-Mpf 0.25%) Confirm Administered Dose 10 ml .ROUTE .STK-MED ONE Stop: 10/27/20 08:07 Cefazolin Sodium (Ancef) Confirm Administered Dose 2 gm .ROUTE .STK-MED ONE Stop: 10/27/20 08:03 Fentanyl (Sublimaze) Confirm Administered Dose 100 mcg .ROUTE .STK-MED ONE Stop: 10/27/20 08:03 Lidocaine HCl (Xylocaine-Mpf 1%) Confirm Administered Dose 4 mls @ as directed .ROUTE .STK-MED ONE Stop: 10/27/20 08:03 Influenza Virus Vaccine (Pharmacy To Dose - Influenza Vaccine) 1 each IM ONETIME ONE Stop: 10/26/20 17:38 Influenza Virus Vaccine (Fluzone High-Dose Quad 2020-21) 240 mcg IM .ONCE ONE Stop: 10/26/20 17:46 Lidocaine HCl (Xylocaine-Mpf 1%) Confirm Administered Dose 30 ml .ROUTE .STK-MED ONE Stop: 10/27/20 08:07 Propofol (Diprivan 20 Ml) Confirm Administered Dose 200 mg .ROUTE .STK-MED ONE Stop: 10/27/20 08:03
--- NOTE | 2020-10-27 09:03 | PCM48HPAN ---
Post Anesthesia Note - EVALUATION WITHIN 48HRS OF ANESTHETIC Vital Signs in Normal Range: Yes Patient Participated in Evaluation: Yes Respiratory Function Stable: Yes Airway Patent: Yes Cardiovascular Function Stable: Yes Hydration Status Stable: Yes Pain Control Satisfactory: Yes Nausea and Vomiting Control Satisfactory: Yes Mental Status Recovered: Yes Vital Signs: Last Vital Signs Temp 36.4 C 10/27/20 08:10 Pulse 80 10/27/20 08:10 Resp 18 10/27/20 08:10 BP 105/80 10/27/20 08:10 Pulse Ox 94 L 10/27/20 08:10 - COMMENTS/OBSERVATIONS Free Text/Narrative:: no anesthesia complications noted
[2020-10-27 09:21] VITALS: PULSE 65
[2020-10-27 09:25] VITALS: BP 151/75
--- NOTE | 2020-11-03 07:34 | PCM.OPNOTE ---
- General Post-Op/Procedure Note Date of Surgery/Procedure: 10/27/20 Operative Procedure(s): right carpal tunnel release Pre Op Diagnosis: right median nerve compression neuropathy Post-Op Diagnosis: Same Anesthesia Technique: Local, MAC Primary Surgeon: Martin Prieto Anesthesia Provider: Anatoliy David Finished Cigar Maker: Pat Ramirez EBL in mLs: 5 Complications: None Condition: Good
--- NOTE | 2020-11-03 08:01 | OR ---
DATE OF OPERATION: 10/27/2020 SURGEON: Martin Prieto MD OPERATION PERFORMED: Right carpal tunnel release. PREOPERATIVE DIAGNOSIS: Right median nerve compression neuropathy. POSTOPERATIVE DIAGNOSIS: Right median nerve compression neuropathy. ANESTHESIA: Local MAC. ANESTHESIA PROVIDER: Anatoliy David CRNA. MANAGER CATH LAB: HOOD Wright ESTIMATED BLOOD LOSS: 5 mL. COMPLICATIONS: None. CONDITION: Stable. DESCRIPTION OF PROCEDURE: The patient was identified in the preop holding area. Proper site was marked and identified by the surgeon. The patient was taken back to the operating theater where after adequate anesthesia, the patient's right upper extremity was sterilely prepped and draped in the usual sterile fashion. OR time-out was performed. The patient did not receive antibiotics and it is not indicated for soft tissue hand procedure. At this time, the right upper extremity was exsanguinated and an Esmarch was used as a tourniquet on the forearm. At this time, using 1% lidocaine without epinephrine and 0.25% Marcaine without epinephrine, the palmar cutaneous branch of the median nerve was anesthetized and then the incisional site was anesthetized using [place] cardinal line and ulnar border of the fourth digit as reference. Once this had set up, an incision was made. Blunt dissection was taken down to the palmar cutaneous fascia. Palmar cutaneous fascia was incised with a Gonzales blade. At this time, the transverse carpal ligament was identified. A small rent was made in the transverse carpal ligament with a Gonzales blade under direct visualization. Resection of the transverse carpal ligament was done distally using tenotomy scissors making sure to stop short of the palmar arch. At this time, attention was turned proximally after it was found to be adequately released. Using the tenotomy scissors keeping the tips ulnar to protect the palmar cutaneous branch of the median nerve, the superficial forearm fascia as well as the transverse carpal ligament were resected proximally. It was found to be adequate release both proximally and distally. At this time, adequate saline was irrigated through the wound. 4-0 nylon sutures were used closure of the skin. The patient was placed in a sterile soft dressing and sent to PACU in stable condition. MMODAL [facility][id number] [facility] HE[facility] CENTERFarnaz
== END 2020-10-27 09:41 | disposition home or self-care (01) ==
LOC: JD.SDS 07:57
PROVIDERS: ATTEND Orthopaedic Surgery
DX: G56.11 Other lesions of median nerve, right upper limb (principal); G56.01 Carpal tunnel syndrome, right upper limb; D64.9 Anemia, unspecified; F32.9 Major depressive disorder, single episode, unspecified; E11.9 Type 2 diabetes mellitus without complications; E78.00 Pure hypercholesterolemia, unspecified; I10 Essential (primary) hypertension; E03.9 Hypothyroidism, unspecified; E78.5 Hyperlipidemia, unspecified; G47.00 Insomnia, unspecified; Z79.899 Other long term (current) drug therapy; Z79.84 Long term (current) use of oral hypoglycemic drugs; Z79.890 Hormone replacement therapy; Z98.890 Other specified postprocedural states; Z87.891 Personal history of nicotine dependence
CPT/HCPCS: 64721; 87641; 90662; G0008; J0690; J2001; J2704; J3010; J3490; J7120; 01810

== ENCOUNTER 2021-05-21 16:56 | Emergency (ER) | payer MEDICARE, BC ==
[2021-05-21] MEDS ORDERED: Sodium Chloride 0.9% 10 ML Syringe FLUSH PRN (17:27)
--- NOTE | 2021-05-21 17:47 | EDM.PDOC ---
ED HPI GENERAL MEDICAL PROBLEM - General Chief Complaint: Chest Pain Stated Complaint: BACK/CHEST PAIN X 1 WEEK Time Seen by Provider: 05/21/21 17:11 Source of Information: Reports: Patient History Limitations: Reports: No Limitations - History of Present Illness INITIAL COMMENTS - FREE TEXT/NARRATIVE: The patient presents with her son for chest pain and shortness of breath. She said the chest pain comes and goes. The pain is in the mid chest and it will go to her back. It hurts to take a deep breath also. She has some shortness of breath at times. This has been going on for about a week. She has no fever, chills, cough, abdominal pain, nausea or vomiting. She does have swelling in her legs but that is a chronic issue for her. She does not have a history of an OK. She does not have a history of DVT or PE. Her sone does have a history of PE and he and the patient are worried she may have a blood clot in her lungs. She does not smoke. Onset: Gradual Duration: Week(s): Location: Reports: Chest Quality: Reports: Pressure Severity: Moderate Improves with: Reports: None Worsens with: Reports: None Associated Symptoms: Reports: Chest Pain, Shortness of Breath. Denies: Cough, Fever/Chills, Headaches, Nausea/Vomiting - Related Data Allergies Allergy/AdvReac Type Severity Reaction Status Date / Time No Known Allergies Allergy Verified 05/21/21 17:10 Home Meds: Home Meds Diltiazem [Cardizem CD] 240 mg PO DAILY 11/26/14 [History] Cholecalciferol (Vitamin D3) [Vitamin D3] 5,000 unit PO DAILY 10/02/17 [History] Losartan Potassium [Cozaar] 50 mg PO DAILY 10/02/17 [History] Oxybutynin Chloride 5 mg PO BEDTIME 10/02/17 [History] metFORMIN [Glucophage] 500 mg PO BID 10/02/17 [History] Calcium Carbonate [Calcium] 600 mg PO DAILY 05/05/18 [History] Omeprazole 20 mg PO DAILY 06/03/19 [History] Timolol Maleate/Latanoprost/Pf [Timolol 0.5%-Latanopros 0.005%] 1 drop EYEBOTH DAILY 06/03/19 [History] Venlafaxine [Effexor] 75 mg PO DAILY 06/03/19 [History] Acetaminophen [Tylenol] 650 mg PO Q4H PRN 10/26/20 [History] Levothyroxine [Synthroid] 100 mcg PO DAILY 10/26/20 [History] Pravastatin Sodium 80 mg PO DAILY 10/26/20 [History] Tamoxifen Citrate 20 mg PO DAILY 10/26/20 [History] traMADol [Ultram] 50 - 100 mg PO Q8H PRN #8 tab 10/27/20 [Rx] Rivaroxaban [Xarelto] 15 mg PO BID #42 tab 05/21/21 [Rx] Rivaroxaban [Xarelto] 20 mg PO DAILY #30 tablet 05/21/21 [Rx] Past Medical History HEENT History: Reports: Hard of Hearing Other HEENT History: Tinnitus Cardiovascular History: Reports: Afib, High Cholesterol, Hypertension Respiratory History: Reports: Bronchitis, Recurrent Other Respiratory History: wheezing, hoarsness, URI- past smoker Gastrointestinal History: Reports: None Other Gastrointestinal History: change in bowel habits, abdominal discomfort Genitourinary History: Reports: None 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 Musculoskeletal History: Carpal Tunnel Syndrome Other Neuro History: Dizziness Psychiatric History: Reports: Anxiety, Depression Other Psychiatric History: insomnia Endocrine/Metabolic History: Reports: Diabetes, Type II, Hypothyroidism Hematologic History: Reports: None Immunologic History: Reports: None Oncologic (Cancer) History: Reports: Breast Dermatologic History: Reports: None Other Dermatologic History: soft tissue mass - Infectious Disease History Infectious Disease History: Reports: None - Past Surgical History Head Surgeries/Procedures: Reports: None HEENT Surgical History: Reports: Cataract Surgery, Other (See Below) Other HEENT Surgeries/Procedures: laryngotomy Cardiovascular Surgical History: Reports: None Respiratory Surgical History: Reports: None GI Surgical History: Reports: Colonoscopy Female Surgical History: Reports: Other (See Below) Other Female Surgeries/Procedures: lumpectomy Endocrine Surgical History: Reports: Thyroidectomy Musculoskeletal Surgical History: Reports: Hip Replacement, Knee Replacement, Other (See Below) Other Musculoskeletal Surgeries/Procedures:: fractured femur and surgery Oncologic Surgical History: Reports: None Social & Family History - Family History Family Medical History: No Pertinent Family History - Tobacco Use Tobacco Use Status *Q: Never Tobacco User - Caffeine Use Caffeine Use: Reports: Coffee, Soda Other Caffeine Use: 3-4 cups/coffee - Recreational Drug Use Recreational Drug Use: No - Living Situation & Occupation Living situation: Reports: Alone Occupation: Retired ED ROS GENERAL - Review of Systems Review Of Systems: See Below Constitutional: Reports: No Symptoms HEENT: Reports: No Symptoms Respiratory: Reports: Shortness of Breath. Denies: Cough Cardiovascular: Reports: Chest Pain Endocrine: Reports: No Symptoms GI/Abdominal: Reports: No Symptoms : Reports: No Symptoms Musculoskeletal: Reports: Back Pain ED EXAM, GENERAL - Physical Exam Exam: See Below Exam Limited By: No Limitations General Appearance: Alert, No Apparent Distress Ears: Normal External Exam Nose: Normal Inspection Head: Atraumatic, Normocephalic Neck: Normal Inspection Respiratory/Chest: No Respiratory Distress, Lungs Clear, Normal Breath Sounds Cardiovascular: Regular Rate, Rhythm, No Edema, No Murmur GI/Abdominal: Soft, Non-Tender, No Organomegaly, No Mass Back Exam: Normal Inspection Extremities: Normal Inspection #1 Interpretation EKG Date: 05/21/21 Time: 17:43 Rhythm: NSR Rate (Beats/Min): 67 [place]: Normal P-Wave: Present QRS: Normal ST-T: Normal QT: Normal Course - Vital Signs Last Recorded V/S: Last Vital Signs Temp 97.7 F 05/21/21 17:07 Pulse 85 05/21/21 17:07 Resp 21 H 05/21/21 17:07 BP 158/91 H 05/21/21 17:07 Pulse Ox 96 05/21/21 17:07 - Orders/Labs/Meds Orders: Active Orders 24 hr Category Date Time Status Cardiac Monitoring [RC] . DIRECTED Care 05/21/21 17:27 Active EKG Documentation Completion [RC] STAT Care 05/21/21 17:28 Active Peripheral IV Care [RC] . DIRECTED Care 05/21/21 17:28 Active Ang Chest [CT] Stat Exams 05/21/21 17:28 Taken Sodium Chloride 0.9% [Normal Saline] 1,000 ml Med 05/21/21 18:30 Active IV ASDIRECTED Sodium Chloride 0.9% [Normal Saline] 100 ml Med 05/21/21 18:45 Active IV ASDIRECTED Sodium Chloride 0.9% [Saline Flush] Med 05/21/21 17:27 Active 10 ml FLUSH ASDIRECTED PRN Peripheral IV Insertion Adult [OM.PC] Stat Oth 05/21/21 17:27 Ordered Medication Orders Sodium Chloride (Normal Saline) 1,000 mls @ 150 mls/hr IV ASDIRECTED JESSIKA Last Admin: 05/21/21 19:00 Dose: 150 mls/hr Documented by: IMMANUEL Sodium Chloride (Normal Saline) 100 mls @ 60 mls/hr IV ASDIRECTED JESSIKA Last Admin: 05/21/21 19:03 Dose: 60 mls/hr Documented by: CARLITA Sodium Chloride (Sodium Chloride 0.9% 10 Ml Syringe) 10 ml FLUSH ASDIRECTED PRN PRN Reason: Keep Vein Open Last Admin: 05/21/21 17:37 Dose: 10 ml Documented by: ARNEL Labs: Laboratory Tests 05/21/21 05/21/21 05/21/21 Range/Units 17:35 17:35 17:35 WBC 8.60 (3.98-10.04) K/mm3 RBC 4.19 (3.98-5.22) M/mm3 Hgb 11.1 L (11.2-15.7) gm/dl Hct 35.6 (34.1-44.9) % MCV 85.0 (79.4-94.8) fl MCH 26.5 (25.6-32.2) pg MCHC 31.2 L (32.2-35.5) g/dl RDW Std Deviation 45.1 (36.4-46.3) fL Plt Count 374 H D (182-369) K/mm3 MPV 8.8 L (9.4-12.3) fl Neut % (Auto) 67.5 (34.0-71.1) % Lymph % (Auto) 23.0 (19.3-51.7) % Stephens % (Auto) 7.7 (4.7-12.5) % Eos % (Auto) 1.5 (0.7-5.8) Baso % (Auto) 0.2 (0.1-1.2) % Neut # (Auto) 5.80 (1.56-6.13) K/mm3 Lymph # (Auto) 1.98 (1.18-3.74) K/mm3 Stephens # (Auto) 0.66 H (0.24-0.36) K/mm3 Eos # (Auto) 0.13 (0.04-0.36) K/mm3 Baso # (Auto) 0.02 (0.01-0.08) K/mm3 D-Dimer, Quantitative 1.16 H (0.19-0.50) mg/L Sodium 143 (136-145) mEq/L Potassium 3.7 (3.5-5.1) mEq/L Chloride 107 (98-107) mEq/L Carbon Dioxide 24 (21-32) mEq/L Anion Gap 15.7 H (5-15) BUN 20 H (7-18) mg/dL Creatinine 1.5 H (0.55-1.02) mg/dL Est Cr Clr Drug Dosing 20.69 mL/min Estimated GFR (MDRD) 33 (>60) mL/min BUN/Creatinine Ratio 13.3 L (14-18) Glucose 89 (70-99) mg/dL Calcium 8.4 L (8.5-10.1) mg/dL Total Bilirubin 0.2 (0.2-1.0) mg/dL AST 14 L (15-37) U/L ALT 16 (14-59) U/L Alkaline Phosphatase 56 (46-116) U/L Troponin I < 0.017 (0.00-0.056) ng/mL Total Protein 6.3 L (6.4-8.2) g/dl Albumin 2.8 L (3.4-5.0) g/dl Globulin 3.5 gm/dL Albumin/Globulin Ratio 0.8 L (1-2) Meds: Medications Generic Name Dose Route Start Last Admin Trade Name Freq PRN Reason Stop Dose Admin Sodium Chloride 1,000 mls @ 150 mls/hr 05/21/21 18:30 05/21/21 19:00 Normal Saline IV 150 mls/hr ASDIRECTED JESSIKA Administration Sodium Chloride 100 mls @ 60 mls/hr 05/21/21 18:45 05/21/21 19:03 Normal Saline IV 60 mls/hr ASDIRECTED JESSIKA Administration Sodium Chloride 10 ml 05/21/21 17:27 05/21/21 17:37 Sodium Chloride 0.9% 10 Ml Syringe FLUSH 10 ml ASDIRECTED PRN Administration Keep Vein Open Discontinued Medications Generic Name Dose Route Start Last Admin Trade Name Freq PRN Reason Stop Dose Admin Iopamidol 100 ml 05/21/21 18:34 05/21/21 19:03 Iopamidol 755 Mg/Ml 100 Ml Bottle IVPUSH 05/21/21 18:35 100 ml ONETIME ONE Administration Sodium Chloride 10 ml 05/21/21 18:34 05/21/21 19:03 Sodium Chloride 0.9% 10 Ml Syringe FLUSH 05/21/21 18:35 10 ml ONETIME ONE Administration - Re-Assessments/Exams Free Text/Narrative Re-Assessment/Exam: 05/21/21 17:48 I ordered an IV saline lock, EKG, chest CT and labs. 05/21/21 19:41 Her EKG shows a NSR with no acute changes. Her CBC looks good. Her D-dimer was elevated at 1.16. Her creatinine was elevated at 1.5. Her troponin is negative. I did ordered some NS to protect her kidneys for the CT angio. The CT angio shows small volume acute pulmonary emboli subsegmental branches right lower lobe. RV to LV ratio is greater than 1 suggesting a component of underlying right heart strain. Tiny incidental 3mm nodule right middle lobe. I garcia start her on xareolto. 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 Take the xarelto 15mg 2 times per day for 3 weeks and then take the 20mg daily. Follow up with Balbina within a week. Please return if you are worse. Sepsis Event Note (ED) - Evaluation Sepsis Screening Result: No Definite Risk - Focused Exam Vital Signs: Vital Signs Temp Pulse Resp BP Pulse Ox 05/21/21 17:07 97.7 F 85 21 H 158/91 H 96 - My Orders Last 24 Hours: My Active Orders 05/21/21 17:27 Cardiac Monitoring [RC] . DIRECTED Sodium Chloride 0.9% [Saline Flush] 10 ml FLUSH ASDIRECTED PRN Peripheral IV Insertion Adult [OM.PC] Stat 05/21/21 17:28 EKG Documentation Completion [RC] STAT Peripheral IV Care [RC] . DIRECTED Ang Chest [CT] Stat 05/21/21 18:30 Sodium Chloride 0.9% [Normal Saline] 1,000 ml IV ASDIRECTED 05/21/21 18:45 Sodium Chloride 0.9% [Normal Saline] 100 ml IV ASDIRECTED - Assessment/Plan Last 24 Hours: My Active Orders 05/21/21 17:27 Cardiac Monitoring [RC] . DIRECTED Sodium Chloride 0.9% [Saline Flush] 10 ml FLUSH ASDIRECTED PRN Peripheral IV Insertion Adult [OM.PC] Stat 05/21/21 17:28 EKG Documentation Completion [RC] STAT Peripheral IV Care [RC] . DIRECTED Ang Chest [CT] Stat 05/21/21 18:30 Sodium Chloride 0.9% [Normal Saline] 1,000 ml IV ASDIRECTED 05/21/21 18:45 Sodium Chloride 0.9% [Normal Saline] 100 ml IV ASDIRECTED
[2021-05-21] MEDS ORDERED: Sodium Chloride 0.9% 1,000 ML IV SCH (18:30)
[2021-05-21] MEDS ORDERED: Iopamidol 755 Mg/ML 100 ML Bottle IVPUSH ONE (18:34)
[2021-05-21] MEDS ORDERED: Sodium Chloride 0.9% 10 ML Syringe FLUSH ONE (18:34)
[2021-05-21] MEDS ORDERED: Sodium Chloride 0.9% 100 ML IV SCH (18:45)
[2021-05-21] MEDS ORDERED: Rivaroxaban 15 MG Tab PO ONE (19:43)
[2021-05-21 20:53] VITALS: BP 147/76; PULSE 76
--- NOTE | 2021-05-22 13:04 | CT ---
CT chest Technique: Multiple axial sections through the chest were obtained. Intravenous contrast was utilized. Study has been performed as a pulmonary angiogram protocol. Comparison: No prior chest CT study is available, previous chest x-ray of 08/26/19 is available. Findings: Small filling defects are seen within the subsegmental branches within the right lower lobe compatible with minimal pulmonary emboli. No other areas of abnormal pulmonary emboli are seen within the other lungs. Atherosclerotic change is noted within the thoracic aorta. Coronary artery calcification is noted. Right ventricle is slightly dilated over the left ventricle which is compatible with minimal right ventricular strain. Lung window settings were reviewed which show slight linear density within the right middle lobe compatible with scarring or atelectasis. Lungs show no acute parenchymal change. Visualized upper abdominal structures show a small nonobstructing stone within the left kidney. No acute abnormality is appreciated within the visualized upper abdomen. Bone window settings were reviewed. Scattered degenerative change is noted within the spine with disc space narrowing and endplate spurring. Left shoulder prosthesis is noted. Severe degenerative change is noted within the right shoulder. Impression: 1. Minimal pulmonary emboli within the right lower lung. 2. Minimal prominence of the right ventricle compatible with minimal right ventricular strain. 3. Slight atelectasis or scarring within the right middle lung. No discrete pulmonary nodule or acute parenchymal change is seen. 4. Other findings as noted above. Diagnostic code #5 I mostly agree with preliminary report from [facility], finalized on 05/21/21, 8:22 PM CDT, code 2
== END 2021-05-21 20:15 | disposition home or self-care (01) ==
LOC: JD.ED 16:56
DX: I26.99 Other pulmonary embolism without acute cor pulmonale (principal); I48.91 Unspecified atrial fibrillation; E78.00 Pure hypercholesterolemia, unspecified; I10 Essential (primary) hypertension; E11.9 Type 2 diabetes mellitus without complications; E03.9 Hypothyroidism, unspecified; Z79.84 Long term (current) use of oral hypoglycemic drugs; Z79.899 Other long term (current) drug therapy; Z79.01 Long term (current) use of anticoagulants
CPT/HCPCS: 36415; 71275; 80053; 84484; 85025; 85379; 93005; 99285; A9270; J7030; Q9967; 93010; 99284

== ENCOUNTER 2023-06-22 18:11 | Emergency (ER) | payer MEDICARE, BC ==
[2023-06-22 18:33] LABS: BASOPHILS ABSOLUTE AUTO 0.03 K/mm3 (0.01-0.08); BASOPHILS PERCENT AUTO 0.3 % (0.1-1.2); EOSINOPHILS ABSOLUTE AUTO 0.19 K/mm3 (0.04-0.36); EOSINOPHILS PERCENT AUTO 2.1 (0.7-5.8); HEMOGLOBIN 12.5 gm/dl (11.2-15.7); IMMATURE GRAN ABSOLUTE AUTO 0.01 K/mm3 (0.00-0.10); IMMATURE GRAN PERCENT AUTO 0.1 % (<=1.0); LYMPHOCYTES ABSOLUTE AUTO 2.02 K/mm3 (1.18-3.74); LYMPHOCYTES PERCENT AUTO 22.6 % (19.3-51.7); MEAN CORPUSCULAR HEMOGLOBIN 28.4 pg (25.6-32.2); MEAN CORPUSCULAR HGB CONC 32.1 g/dl (32.2-35.5); MEAN CORPUSCULAR VOLUME 88.6 fl (79.4-94.8); MEAN PLATELET VOLUME 9.1 fl (9.4-12.3); MONOCYTES ABSOLUTE AUTO 0.73 K/mm3 (0.24-0.36); MONOCYTES PERCENT AUTO 8.2 % (4.7-12.5); NEUTROPHILS ABSOLUTE AUTO 5.96 K/mm3 (1.56-6.13); NEUTROPHILS PERCENT AUTO 66.7 % (34.0-71.1); PLATELET COUNT,PLT 269 K/mm3 (182-369); WHITE BLOOD CELL COUNT,WBC 8.94 K/mm3 (3.98-10.04)
[2023-06-22 18:48] LABS: A/G RATIO 1.1 (1-2); ALANINE AMINOTRANSFERASE,ALT 17 U/L (14-59); ALBUMIN 3.3 g/dl (3.4-5.0); ALKALINE PHOSPHATASE 77 U/L (46-116); ANION GAP 16.4 (5-15); ASPARTATE AMNIOTRANSFERASE,AST 17 U/L (15-37); BILIRUBIN TOTAL 0.2 mg/dL (0.2-1.0); BLOOD UREA NITROGEN,BUN 29 mg/dL (7-18); BUN/CREATININE RATIO 18.1 (14-18); CALCIUM 9.1 mg/dL (8.5-10.1); CARBON DIOXIDE,CO2 26 mEq/L (21-32); CHLORIDE,CL 100 mEq/L (98-107); CREATININE 1.6 mg/dL (0.55-1.02); ESTIMATED GFR 31 mL/min (>60); GLUCOSE RANDOM 170 mg/dL (70-99); POTASSIUM,K 4.4 mEq/L (3.5-5.1); PROTEIN TOTAL,TP 6.4 g/dl (6.4-8.2); SODIUM,NA 138 mEq/L (136-145)
[2023-06-22 19:38] VITALS: BP 140/73; PULSE 75
== END 2023-06-22 19:40 | disposition home or self-care (01) ==
LOC: JD.ED 18:11
DX: S06.0X0A Concussion without loss of consciousness, initial encounter (principal); S00.91XA Abrasion of unspecified part of head, initial encounter; E11.9 Type 2 diabetes mellitus without complications; E03.9 Hypothyroidism, unspecified; I10 Essential (primary) hypertension; E78.00 Pure hypercholesterolemia, unspecified; I48.91 Unspecified atrial fibrillation; Z79.899 Other long term (current) drug therapy; W19.XXXA Unspecified fall, initial encounter
CPT/HCPCS: 36415; 70450; 70450-26; 80053; 85025; 99283; 99284

== ENCOUNTER 2023-06-29 17:41 | Emergency (ER) | payer MEDICARE, BC ==
[2023-06-29 18:09] VITALS: BP 168/77; PULSE 79
[2023-06-29] MEDS ORDERED: Orphenadrine 100 MG Tab.ER PO ONE (18:50)
[2023-06-29 19:06] LABS: BASOPHILS ABSOLUTE AUTO 0.03 K/mm3 (0.01-0.08); BASOPHILS PERCENT AUTO 0.3 % (0.1-1.2); EOSINOPHILS ABSOLUTE AUTO 0.24 K/mm3 (0.04-0.36); EOSINOPHILS PERCENT AUTO 2.8 (0.7-5.8); HEMOGLOBIN 12.5 gm/dl (11.2-15.7); IMMATURE GRAN ABSOLUTE AUTO 0.02 K/mm3 (0.00-0.10); IMMATURE GRAN PERCENT AUTO 0.2 % (<=1.0); LYMPHOCYTES ABSOLUTE AUTO 2.99 K/mm3 (1.18-3.74); LYMPHOCYTES PERCENT AUTO 34.3 % (19.3-51.7); MEAN CORPUSCULAR HEMOGLOBIN 28.3 pg (25.6-32.2); MEAN CORPUSCULAR HGB CONC 32.1 g/dl (32.2-35.5); MEAN CORPUSCULAR VOLUME 88.2 fl (79.4-94.8); MONOCYTES ABSOLUTE AUTO 0.75 K/mm3 (0.24-0.36); MONOCYTES PERCENT AUTO 8.6 % (4.7-12.5); NEUTROPHILS ABSOLUTE AUTO 4.69 K/mm3 (1.56-6.13); NEUTROPHILS PERCENT AUTO 53.8 % (34.0-71.1); PLATELET COUNT,PLT 265 K/mm3 (182-369); RED BLOOD CELL COUNT 4.42 M/mm3 (3.98-5.22); WHITE BLOOD CELL COUNT,WBC 8.72 K/mm3 (3.98-10.04)
[2023-06-29 19:30] LABS: A/G RATIO 1.1 (1-2); ALBUMIN 3.3 g/dl (3.4-5.0); ANION GAP 14.2 (5-15); BILIRUBIN TOTAL 0.2 mg/dL (0.2-1.0); CALCIUM 9.1 mg/dL (8.5-10.1); CREATININE 1.5 mg/dL (0.55-1.02); EST CRCL DRUG DOSING (CG) 20.9 mL/min; POTASSIUM,K 4.2 mEq/L (3.5-5.1); PROTEIN TOTAL,TP 6.4 g/dl (6.4-8.2)
== END 2023-06-29 20:49 | disposition home or self-care (01) ==
LOC: JD.ED 17:41
DX: M62.830 Muscle spasm of back (principal); E03.9 Hypothyroidism, unspecified; E11.9 Type 2 diabetes mellitus without complications; E78.00 Pure hypercholesterolemia, unspecified; I48.91 Unspecified atrial fibrillation; I10 Essential (primary) hypertension; Z79.02 Long term (current) use of antithrombotics/antiplatelets; Z79.84 Long term (current) use of oral hypoglycemic drugs; Z79.899 Other long term (current) drug therapy
CPT/HCPCS: 36415; 80053; 84484; 85025; 93005; 99283; A9270; 93010

== ENCOUNTER 2023-07-15 09:06 | Emergency (ER) | payer OTHER, MEDICARE, BC ==
[2023-07-15] MEDS ORDERED: Sodium Chloride 0.9% 1,000 ML IV SCH (09:30)
[2023-07-15] MEDS ORDERED: Iopamidol 612 MG/ML 100 ML Bottle IVPUSH ONE (09:30)
[2023-07-15] MEDS ORDERED: Sodium Chloride 0.9% 10 ML Syringe FLUSH PRN (09:30)
[2023-07-15 09:38] LABS: BASOPHILS ABSOLUTE AUTO 0.1 K/mm3 (0.0-0.2); BASOPHILS PERCENT AUTO 0.9 % (0.0-1.0); EOSINOPHILS ABSOLUTE AUTO 0.3 K/mm3 (0.0-0.4); EOSINOPHILS PERCENT AUTO 3.7 % (0.0-6.0); HEMATOCRIT 38.6 % (37.0-47.0); HEMOGLOBIN 12.6 gm/dl (12.0-16.0); IMMATURE GRAN ABSOLUTE AUTO 0.06 K/mm3 (0.00-0.05); IMMATURE GRAN PERCENT AUTO 0.9 % (0.0-0.4); LYMPHOCYTES ABSOLUTE AUTO 2.7 K/mm3 (1.0-4.8); LYMPHOCYTES PERCENT AUTO 38.6 % (24.0-44.0); MEAN CORPUSCULAR HEMOGLOBIN 28.7 pg (28.0-32.0); MEAN CORPUSCULAR HGB CONC 32.6 g/dl (32.0-36.0); MEAN CORPUSCULAR VOLUME 87.9 fl (83.0-99.0); MEAN PLATELET VOLUME 8.7 fl (9.4-12.3); MONOCYTES ABSOLUTE AUTO 0.5 K/mm3 (0.0-0.8); MONOCYTES PERCENT AUTO 7.3 % (0.0-8.0); NEUTROPHILS ABSOLUTE AUTO 3.4 K/mm3 (1.8-7.7); NEUTROPHILS PERCENT AUTO 48.6 % (41.0-71.0); PLATELET COUNT,PLT 244 K/mm3 (150-400); RED BLOOD CELL COUNT 4.39 M/mm3 (4.10-5.30); WHITE BLOOD CELL COUNT,WBC 6.94 K/mm3 (3.9-11.3)
[2023-07-15 10:07] LABS: A/G RATIO 1.1 (1-2); ALBUMIN 3.3 g/dl (3.4-5.0); ANION GAP 11.9 (5-15); BILIRUBIN TOTAL 0.3 mg/dL (0.2-1.0); CALCIUM 8.9 mg/dL (8.5-10.1); CREATININE 1.3 mg/dL (0.55-1.02); EST CRCL DRUG DOSING (CG) 21.9 mL/min; POTASSIUM,K 3.9 mEq/L (3.5-5.1); PROTEIN TOTAL,TP 6.4 g/dl (6.4-8.2)
[2023-07-15] MEDS ORDERED: fentaNYL 100 MCG/2 ML SDV IVPUSH ONE (10:34)
[2023-07-15] MEDS ORDERED: Tranexamic Acid 1,000 MG/10 ML Vial IV ONE (11:20)
[2023-07-15] MEDS ORDERED: Ondansetron 4 MG/2 ML SDV IVPUSH ONE (11:21)
[2023-07-15 11:25] LABS: INR 1.04; PROTHROMBIN TIME 11.1 SECONDS (9.7-12.0)
[2023-07-15 11:26] LABS: PTT,PARTIAL THROMBOPLSTIN TIME 25.7 SECONDS (21.7-31.4)
[2023-07-15] MEDS ORDERED: Lactated Ringers 1,000 ML IV ONE (11:30)
[2023-07-15] MEDS ORDERED: Tranexamic Acid 1,000 MG in Sodium Chloride 0.9% 100 ML IV ONE (11:30)
[2023-07-15] MEDS ORDERED: Factor IX Complex Human 500 UNIT VIAL IV ONE (11:31)
[2023-07-15 11:48] LABS: HEMOGLOBIN 10.6 gm/dl (12.0-16.0)
[2023-07-15] MEDS ORDERED: Factor IX Complex Human 1,500 UNIT IV ONE (12:15)
[2023-07-15 19:22] VITALS: BP 96/57; PULSE 92
== END 2023-07-15 12:25 ==
LOC: JD.ED 09:06
DX: S22.20XA Unspecified fracture of sternum, initial encounter for closed fracture (principal); S30.1XXA Contusion of abdominal wall, initial encounter; I48.91 Unspecified atrial fibrillation; I11.0 Hypertensive heart disease with heart failure; E11.9 Type 2 diabetes mellitus without complications; E03.9 Hypothyroidism, unspecified; E78.5 Hyperlipidemia, unspecified; Z79.84 Long term (current) use of oral hypoglycemic drugs; V49.40XA Driver injured in collision with unspecified motor vehicles in traffic accident, initial encounter
CPT/HCPCS: 36415; 36430; 70450; 71260; 72125; 74177; 80053; 80061; 83036; 84439; 84443; 84484; 85014; 85018; 85025; 85610; 85730; 86850; 86900; 86901; 86922; 93005; 96361; 96365; 96375; 99285; J2405; J3010; J3490; J7030; J7120; J7168; P9016; Q9967; 93010

== ENCOUNTER → 2023-10-24 | Day surgery (SDC) | payer MEDICARE, BC ==
[~2023-10-24] MED LIST changes: +Bupivacaine 0.25% 10 ML SDV ONE; -FLU Vacc QV2020-21(65YR UP)/PF 240 MCG/0.7 ML Syringe IM ONE; +Lidocaine 1% 10 ML MDV ONE; +Lidocaine 1% 6 ML ONE; -Lidocaine 1%/Sod Bicarbonate in NS 8.4% 1 ML Syringe IDERM PRN; +Propofol 200 MG/20 ML SDV ONE; +Sodium Chloride 0.9% 10 ML Syringe FLUSH SCH; +ceFAZolin 2 GM Vial ONE; +fentaNYL 100 MCG/2 ML SDV ONE
[2023-10-24 07:28] VITALS: PULSE 77
[2023-10-24 08:11] VITALS: BP 151/76
== END | disposition home or self-care (01) ==
LOC: JD.SDS 05:35
PROVIDERS: ATTEND Orthopaedic Surgery
DX: G56.12 Other lesions of median nerve, left upper limb (principal); G56.00 Carpal tunnel syndrome, unspecified upper limb; E11.9 Type 2 diabetes mellitus without complications; K21.9 Gastro-esophageal reflux disease without esophagitis; F32.A Depression, unspecified; I10 Essential (primary) hypertension; E78.00 Pure hypercholesterolemia, unspecified; E03.9 Hypothyroidism, unspecified; Z79.890 Hormone replacement therapy; Z79.84 Long term (current) use of oral hypoglycemic drugs; Z79.899 Other long term (current) drug therapy; Z87.891 Personal history of nicotine dependence
CPT/HCPCS: 64721; J0690; J2704; J3010; J3490; J7120; 01810; 99100